=== PATIENT | female | born 1940 | race Caucasian/White ===

== ENCOUNTER → 2020-05-30 05:50 | Outpatient (CLI) | payer MEDICARE, SELFPAY ==
--- NOTE | 2020-05-31 11:38 | STRESSREP_ITS ---
Stress Test Report Date: 05/30/2020 Procedure: Pharmacologic stress nuclear imaging study Indications: Left bundle branch block Consent: Per the patient Procedure: The patient underwent pharmacologic (Regadenoson) evaluation with a peak heart rate of 96 beats per minute (67 %predicted maximal heart rate) and a peak blood pressure of 142/68 mmHg. The baseline ECG demonstrated sinus rhythm, nonspecific intraventricular conduction delay. EKG during lexiscan infusion revealed no significant ischemic changes. EKG post infusion revealed no significant ischemic changes [There were no cardiac dysrhythmias pretest, during pharmacologic infusion, or recovery]. [There was no complaint of chest discomfort during pharmacologic infusion or recovery]. The examination was discontinued secondary to completion of protocol. Impression: 1. Lexiscan stress test test is negative for Lexiscan infusion induced EKG changes of ischemia. 2. Lexiscan stress test test is negative for Lexiscan infusion induced chest pain. 3. Results of the nuclear portion of the test is as below Myocardial perfusion imaging study: Technique: The patient was injected with 10.9 millicuries of technetium 99m Cardiolite and subsequently rest SPECT Cardiolite nuclear imaging was obtained in the horizontal long, vertical long, and short axis views. The patient underwent pharmacologic (Regadenoson) evaluation. Please see above for details. The patient was injected with 33.5 millicuries of technetium 99m Cardiolite and subsequently stress SPECT Cardiolite nuclear imaging was obtained in the horizontal long, vertical long, and short axis views. A gated Cardiolite study at peak stress was obtained. Interpretation: Rest and stress SPECT Cardiolite nuclear imaging status post realignment, normalization, and attenuation correction demonstrate no significant fixed or reversible defect suggestive of significant ischemia or infarction. There is extracardiac uptake adjacent to the inferior wall in both the rest and stress images. Gated images reveal akinesis of the inferior wall which could be artifactual related to the extracardiac uptake. The reported LVEF is 49% which could be artificially low related to the extracardiac uptake adjacent to the inferior wall. Impression: 1. There is no evidence of significant ischemia or infarction. 2. Estimated ejection fraction is 49% which could be artifactually low. Consider 2D echo to evaluate LVEF and regional wall motion if clinically indicated. This note was generated with [employer] software. It may contain incorrect words, spelling, and punctuation that were not noted in checking the note before signing.
== END ==
PROVIDERS: PCP Internal Medicine; Referring Provider Internal Medicine; Visit Provider Internal Medicine
DX: I44.7 Left bundle-branch block, unspecified (principal)
CPT/HCPCS: 78452; 93017; A9500; A4216; J2785

== ENCOUNTER 2021-12-16 09:44 | Outpatient (CLI) | payer MEDICARE, SELFPAY ==
[2021-12-16 10:47] LABS: Erythrocyte Sedimentation Rate 7 mm/hr (0-30)
[2021-12-16 10:50] LABS: Absolute Lymphocyte Count 1.39 X10^3/uL (0.83-4.51); Absolute Neutrophil Count 4.4 X10^3/uL (2.0-7.7); Basophil# 0.11 X10^3/uL; Basophil% 1.6 % (0-1); Eosinophil# 0.25 X10^3/uL; Eosinophils% 3.7 % (0-5); Hematocrit 40.2 % (37-47); Hemoglobin 13.5 g/dL (12.0-15.0); Lymphocyte # 1.39 X10^3/ul (0.83-4.51); Lymphocyte % 20.8 % (19-41); Mean Corp Hgb Conc 33.6 g/dL (32-36); Mean Corpuscular Hgb 33.2 pg (27.0-32.0); Mean Corpuscular Volume 98.8 fL (81-99); Mean Platelet Vol. 9.5 fl (6.2-12.0); Monocyte# 0.54 X10^3/uL; Monocyte% 8.1 % (0-10); NRBC Flagged by Analyzer 0 % (0-5); Neutrophil # 4.36 X10^3/uL (2.7-7.7); Neutrophil % 65.2 % (47-70); Platelet Count 341 K/mm3 (150-450); RBC Distribution Width SD 47.4 fl (35.1-43.9); Red Blood Count 4.07 M/mm3 (4.2-5.4); White Blood Count 6.7 K/mm3 (4.4-11.0)
[2021-12-16 11:14] LABS: CRP < 2.90 mg/L (0.0-3.0)
== END 2021-12-16 23:59 | disposition home or self-care (01) ==
LOC: LAB 09:47
PROVIDERS: PCP Internal Medicine; Visit Provider Orthopaedic Surgery
DX: Z96.641 Presence of right artificial hip joint (principal)
CPT/HCPCS: 36415; 85025; 85652; 86140

== ENCOUNTER → 2023-03-26 | Outpatient (CLI) | payer MEDICARE, SELFPAY ==
--- NOTE | 2023-03-26 07:45 | BI_ITS ---
MAMMOGRAPHY - BILATERAL SCREENING REASON FOR EXAM: Female, 82 years old. Routine annual screening examination. PERTINENT HISTORY: Non-contributory. TECHNIQUE: Digital bilateral breast mignon (3D mammographic acquisition) in the CC and MLO projections. 2-D mediolateral oblique (MLO) and craniocaudad (CC) views of both breasts were obtained. CAD: Full Field Digital Mammography with Computer Added Detection was performed. COMPARISON: Comparison is made with prior study July 01, 2016 and May 29, 2015. FINDINGS: Breast Composition: The breasts are heterogeneously dense, which may obscure small masses. There are no dominant masses or suspicious calcifications. No other significant abnormalities are identified. There has been no significant change since the prior study. BI/SCRN MAMM (CAD)W/MIGNON BILAT IMPRESSION: Stable bilateral screening mammogram. Yearly follow-up mammogram recommended. (A) ASSESSMENT CATEGORY: BIRADS Category 1: Negative. A letter regarding these results will be sent to the patient by the facility within 30 days. Approximately 10% of breast cancers are not detected by mammography. A normal mammogram should not delay biopsy of a clinically suspicious abnormality. [id number] Electronically Signed: Luis Cleveland MD at 10:05 EDT ,
== END | disposition home or self-care (01) ==
LOC: OPBI 07:42
PROVIDERS: PCP Internal Medicine; Referring Provider Internal Medicine; Visit Provider Internal Medicine
DX: Z12.31 Encounter for screening mammogram for malignant neoplasm of breast (principal)
CPT/HCPCS: 77063; 77067

== ENCOUNTER 2023-06-21 10:00 | Outpatient (RCR) | payer MEDICARE, SELFPAY ==
--- NOTE | 2023-06-17 11:17 | HP.PTEVAL_ITS ---
Patient's Visit Information Visit Information Visit Information: NUVIA BAUMAN is a 82 year old F referred to Physical Therapy by Dr. Shira Hidalgo, DO with a diagnosis of LEFT SCIATICA ,LEFT LBP WITH RADICULOPATHY ,RIGHT HIP PAIN. Date of Evaluation: 06/17/23 Physical Therapist: Reed Cerda, PT, Cert MDT, OCS Visit Plan Frequency: 2x /Week Duration: 4 Weeks Plan: PT INBTERVETIONS LUMBAR ROM ,DLS ,POSTURAL EX'S AND HIP STRENGTHENING Subjective Subjective: This 82 y/o female presents to physical therapy with back and hip pain . Patient has left lumbar radicular symptoms many years for many years. Patient has h/o THR . Patient seen Dr Hidalgo annual physical then recommended PT and injection by DR Lara pain management. Patient plan to get injection before leaving to [place] next week. Patient location of pain right groin and left buttock pain. Aggravating factors sitting ,walking/standing ,elevation from chair. Alleviating factors rest ,sitting. Patient has difficulty lifting legs when getting in car. Patient denies paranesthesia/tingling. Bowel/bladder - . Pain affects sleeping. Patient - coughing/sneezing-.Patient goal ex's for HEP. Patient condition affects QOL and function. SOCIAL: VOCATION: retired Pain Left Buttocks: Pain Intensity (Out of 10): 5 Pain Intensity Range: 10 Objective Objective: POSTURE: mild forward posture GAIT: reciprocal pattern slow addison NEURO: denies paresthesia/tingling ,reflexes L3-4.L4-L5 ,L5-S1 1/3 SYMMTRIES: align PALPTION: tender SI/LS FLEXABILITY: hamstrings MIN LUMBAR ROM: flexion mod loss ,extension severe loss ,side glides mod loss MMT: ( [employer]) quads right 4-/5 ,hamstrings 4-/5 ,hip flexion 3+/5 pain in groin , Special Tests L/S Slump test left side: Negative L/S Slump test right side: Negative L/S Left Straight Leg Raise: Negative L/S Right Straight Leg Raise: Negative Lumbar Standing: Flexion - Mechanical Response: No effect Lumbar Standing: Flexion - Symptoms During Testing: No effect Lumbar Standing: Flexion - Symptoms After Testing: No effect Lumbar Standing: Extension - Mechanical Response: No effect Lumbar Standing: Extension - Symptoms During Testing: Increases Lumbar Standing: Extension - Symptoms After Testing: No worse Lumbar Standing: Right Side Glides - Mechanical Response: No effect Lumbar Standing: Right Side [place] - Symptoms During Testing: No effect Lumbar Standing: Right Side [place] - Symptoms After Testing: No effect Lumbar Standing: Left Side [place] - Mechanical Response: No effect Lumbar Standing: Left Side [place] - Symptoms During Testing: No effect Lumbar Standing: Left Side [place] - Symptoms After Testing: No effect Balance/Special Test Scores Oswestry Low Back Score: 24 Goals Goal 1:: Patient to be I with HEP Goal Time Frame: 4-6 Weeks Goal 2:: Patient to demonstrate 50% improvement with decrease pain and improve function Goal Time Frame: 4-6 Weeks Goal 3:: Patient to improve lumbar ROM for function of recovery with ADLS Goal Time Frame: 4-6 Weeks Goal 4:: Patient to improve back oswestry by 5 points to improve function Goal Time Frame: 4-6 Weeks Rehabilitation Potential Physical Therapy Diagnosis: This patient has h/o THR and has lumbar radiculopathy with pain with positioning and movement worse with walking /standi ng ,and weakness right affects ADLS and housework task's with physical therapy Rehabilitation Potential: Good Anticipated Interventions Patient/Client Instruction: Educate patient on: Condition and Plan of Care For the Purpose of:: To decrease pain, To increase ROM, To improve muscle performance and motor function, To improve ability to perform ADL's, To increase tolerance to activity/condition/position, To improve ability of physical actions for home/community/work/leisure, To improve health of tissue, To decrease soft tissue restriction and To increase flexibility/ROM Therapeutic Exercise to Include: Strength training, Endurance training, Balance training, Body mechanics, Postural training, Flexibilty training and Dynamic Lumbar Stabilization For the Purpose of:: To decrease pain, To increase ROM, To improve muscle performance and motor function, To increase tolerance to activity/condition/position, To improve ability of physical actions for home/community/work/leisure, To improve health of tissue, To decrease soft tissue restriction, To increase flexibility/ROM, To prevent re-injury and To improve tolerance to ADL's Text: Thank you for the opportunity to evaluate your patient. For Medicare and Medicare HMO plans, please review the plan of care and approve it. It will need to be FAXED BACK to us at [phone] for Medicare purposes. For Medicare only, by signing this I certify the plan of care. Please let me know if there are questions or concerns regarding this plan of care. Physician Signature: Date:
== END 2023-06-21 19:00 | disposition home or self-care (01) ==
LOC: PT 10:00
PROVIDERS: PCP Internal Medicine; Visit Provider Internal Medicine
DX: M54.50 Low back pain, unspecified (principal); M54.32 Sciatica, left side; M25.551 Pain in right hip
CPT/HCPCS: 97110; 97162

== ENCOUNTER → 2024-04-27 | Outpatient (CLI) | payer MEDICARE, SELFPAY ==
--- NOTE | 2024-04-27 08:45 | BI_ITS ---
MAMMOGRAPHY - BILATERAL SCREENING 3-D TOMOSYNTHESIS REASON FOR EXAM: Female, 83 years old. screening PERTINENT HISTORY: No significant family history. TECHNIQUE: 2-D mammograms and 3-D Tomosynthesis of the breast (s) were performed. CAD was performed. COMPARISON: 03/26/2023 FINDINGS: The breast composition is heterogeneously dense that can obscure small breast masses. Scattered benign calcifications are seen. No dense spiculated masses or suspicious microcalcifications are identified. No architectural distortion is identified. There is no skin thickening or retraction. There has been no significant change since the prior study. BI/SCRN MAMM (CAD)W/MIGNON BILAT IMPRESSION: No mammographic signs of malignancy. Routine yearly mammograms recommended. ASSESSMENT CATEGORY: BIRADS Category 1: Negative. A letter regarding these results will be sent to the patient by the facility within 30 days. FOLLOW UP RECOMMENDATION: Yearly follow up mammogram recommended. (A) Approximately 10% of breast cancers are not detected by mammography. A normal mammogram should not delay biopsy of a clinically suspicious abnormality. Electronically Signed: Duglas Ordonez MD at 13:24 EDT ,
--- NOTE | 2024-04-27 08:46 | BD_ITS ---
STUDY: DUAL ENERGY X-RAY ABSORPTIOMETRY / DXA REASON FOR EXAM: Female, 83 years old. [id number] TECHNIQUE: Bone Mineral Density (BMD) measurements of lumbar spine and right forearm were obtained. COMPARISON: Comparison is made with prior study dated July 01, 2016. FINDINGS: Lumbar Spine (L1-L4): g/cm2 (1.276) / T-score (1.8) / Z-score (4.7) Findings are suggestive of normal bone density with a low fracture risk. Right Forearm: g/cm2 (0.341) / T-score (-4.4) / Z-score (-1.1) The T-Scores on the most recent prior examination were: Lumbar Spine (L1-L4): There has been improvement of bone density since the previous examination. BD/Dexa Bone Density Study IMPRESSION: The patient is considered osteoporotic as outlined below according to World Daniel Organization (WHO) criteria with a high fracture risk. There has been improvement of bone density since the previous examination. Reference Information: The T-score is the number of standard deviations above or below the standard which is normal for young adults at their peak bone mineral density. The World Health Organization (WHO) interprets the T-scores as follows: Above -1 Normal bone density Between -1 and -2.5 Osteopenia Equal to / or below -2.5 Osteoporosis As a practical clinical guideline, osteopenia may be graded as follows: Mild -1 through -1.5 Moderate -1.6 through -2.0 Severe -2.1 through -2.4 The Z-score is the number of standard deviations above or below age-matched controls. A Z-score of less than -1.5 would be considered abnormal. References: 1. NIH Osteoporosis and Related Bone Diseases www osteo.org 2. International Society for Clinical Densitometry www iscd.org 3. National Osteoporosis Foundation www nof.org Electronically Signed: Luis Cleveland MD at 15:42 EDT ,
== END | disposition home or self-care (01) ==
LOC: OPBD 08:45
PROVIDERS: PCP Internal Medicine; Referring Provider Internal Medicine; Visit Provider Internal Medicine
DX: Z12.31 Encounter for screening mammogram for malignant neoplasm of breast (principal); Z78.0 Asymptomatic menopausal state
CPT/HCPCS: 77063; 77067; 77080

== ENCOUNTER → 2024-06-06 | Outpatient (CLI) | payer MEDICARE, SELFPAY ==
--- NOTE | 2024-06-06 16:16 | US_ITS ---
STUDY: Focused cervical exam on the left/ULTRASOUND REASON FOR EXAM: Female, 83 years old. neck mass TECHNIQUE: Ultrasound evaluation of the thyroid was performed with real-time and static wynn-scale imaging. COMPARISON: None. FINDINGS: Normal-appearing lymph node measures 1.7 x 1.1 x 0.5 cm. US/Head/Neck Soft Tissue IMPRESSION: Isolated normal-appearing lymph node on the left as above near the area of concern. Electronically Signed: Ken Cooney MD at 17:32 EDT ,
== END | disposition home or self-care (01) ==
LOC: US 16:15
PROVIDERS: PCP Internal Medicine; Referring Provider Internal Medicine; Visit Provider Internal Medicine
DX: R22.1 Localized swelling, mass and lump, neck (principal)
CPT/HCPCS: 76536

== ENCOUNTER → 2024-08-02 | Outpatient (CLI) | payer MEDICARE, SELFPAY ==
--- NOTE | 2024-08-02 12:44 | ECHOD_ITS ---
Reason For Study: LBBB Procedure This was a 2D Doppler, Color Flow transthoracic echocardiogram. Exam performed in department. Left Ventricle Normal LV size. Left ventricular systolic function is normal. The left ventricular ejection fraction is 60 %. No regional wall motion abnormalities noted. Right Ventricle Normal RV size. Normal systolic function. Atria Normal left atrium. Normal right atrium. Mitral Valve Normal mitral valve. Trivial eccentric mitral valve insufficiency. Tricuspid Valve Normal tricuspid valve. Mild tricuspid valve insufficiency. Right ventricular systolic pressure estimated to be 30 mmHg. Aortic Valve Trisinus/trileaflet aortic valve. Pulmonic Valve Normal pulmonic valve. Great Vessels Normal aortic root. Pericardium/Pleural No pericardial effusion. MMode/2D Measurements & Calculations LVIDd: 4.8 cm IVSd: 0.98 cm Ao root diam: 3.4 cm LVIDs: 3.6 cm LVPWd: 0.98 cm RVDd: 2.9 cm FS: 23.9 % LAV(MOD-bp): 56.5 ml LVAd ap4: 27.9 cm2 LVAd ap2: 24.0 cm2 LAV(MOD-bp) Indexed: 30.6 ml/m2 LVLd ap4: 6.9 cm LVLd ap2: 7.4 cm LAV(MOD-sp2): 57.8 ml EDV(MOD-sp4): 91.2 ml EDV(MOD-sp2): 68.1 ml LAV(MOD-sp4): 54.1 ml EDV(sp4-el): 96.1 ml EDV(sp2-el): 66.1 ml LVAs ap4: 15.5 cm2 LVAs ap2: 12.9 cm2 LVLs ap4: 5.4 cm LVLs ap2: 5.6 cm ESV(MOD-sp4): 37.6 ml ESV(MOD-sp2): 25.8 ml ESV(sp4-el): 37.8 ml ESV(sp2-el): 25.0 ml EF(MOD-sp4): 58.8 % EF(MOD-sp2): 62.1 % EF(sp4-el): 60.7 % SV(MOD-sp4): 53.7 ml SV(MOD-sp2): 42.3 ml SV(sp4-el): 58.3 ml SI(MOD-sp4): 29.1 ml/m2 SI(MOD-sp2): 22.9 ml/m2 LA A4 area: 18.0 cm2 LA dimension(2D): 3.5 cm RA A4 area: 12.1 cm2 TAPSE: 2.0 cm Time Measurements MV dec time: 0.23 sec Doppler Measurements & Calculations MV E max joo: 65.6 cm/sec Lat Peak E' Joo: 4.7 cm/sec Med Peak E' Joo: 4.5 cm/sec MV A max joo: 108.9 cm/sec E/E' lat: 14.1 E/E' med: 14.6 MV E/A: 0.60 MV V2 max: 135.2 cm/sec MV P1/2t max joo: 73.3 cm/sec Ao V2 max: 122.5 cm/sec MV max P.3 mmHg MV P1/2t: 83.7 msec Ao max P.0 mmHg MV V2 mean: 58.3 cm/sec Ao V2 mean: 73.4 cm/sec MV mean P.7 mmHg MV dec slope: 256.5 cm/sec2 Ao mean P.6 mmHg MV V2 VTI: 31.1 cm MVA(P1/2t): 2.6 cm2 Ao V2 VTI: 23.2 cm AV (velocity ratio): 0.71 LV V1 max: 82.5 cm/sec PA V2 max: 79.8 cm/sec TR max joo: 256.8 cm/sec LV V1 max P.7 mmHg PA V2 mean: 55.1 cm/sec TR max P.4 mmHg LV V1 mean P.3 mmHg LV V1 mean: 54.0 cm/sec LV V1 VTI: 16.4 cm ECHO/Echo Complete Interpretation Summary Normal LV size. Left ventricular systolic function is normal. The left ventricular ejection fraction is 60 %. Right ventricular systolic pressure estimated to be 30 mmHg. Ordering Physician: Shira Hidalgo Referring Physician: Shira Hidalgo Performed By: Porsche Zaidi, RDCS, RVT
== END | disposition home or self-care (01) ==
LOC: CVS 12:42
PROVIDERS: PCP Internal Medicine; Referring Provider Internal Medicine; Visit Provider Internal Medicine
DX: I44.7 Left bundle-branch block, unspecified (principal)
CPT/HCPCS: 93306

== ENCOUNTER → 2024-08-18 | Outpatient (CLI) | payer MEDICARE, SELFPAY | END | disposition home or self-care (01) | LOC: PSN 07:52 | PROVIDERS: PCP Internal Medicine; Referring Provider Internal Medicine; Visit Provider Internal Medicine | DX: R00.1 Bradycardia, unspecified (principal); I44.7 Left bundle-branch block, unspecified | CPT/HCPCS: 93225; 93226 ==

== ENCOUNTER → 2024-09-07 | Outpatient (CLI) | payer MEDICARE, SELFPAY ==
--- NOTE | 2024-09-07 07:54 | CT_ITS ---
STUDY: CT LEFT SHOULDER REASON FOR EXAM: Female, 83 years old. OSTEOARTHRITIS LEFT SHOULDER RADIATION DOSAGE (If Supplied By Facility): CTDIvol = ( 24.27 ) mGy, DLP = ( 591.30 ) mGycm TECHNIQUE: The patient was scanned in a multi detector CT scanner. High resolution transaxial imaging was performed without the administration of intravenous contrast material. Sagittal and coronal images were reconstructed. Individualized dose optimization techniques were used for this CT. COMPARISON: None. FINDINGS: There is severe glenohumeral arthrosis with [id number], marginal osteophyte formation, and subchondral sclerosis/cyst formation. There is a cluster of calcified loose bodies in the axillary recess measuring up to 2.7 cm in diameter. Intact glenoid neck and visualized scapula. Intact humeral head, neck and tuberosities. Normal coracoid process. Normal visualized lateral clavicle. There is mild hypertrophic acromioclavicular arthrosis. There is a Type II morphology (curved), with a neutral orientation. Normal visualized muscles and soft tissue structures. CT/Extremity Upper without Contra IMPRESSION: Severe glenohumeral arthrosis. Cluster of calcified loose bodies in the axillary recess measuring up to 2.7 cm in diameter. Mild hypertrophic acromioclavicular arthrosis. Electronically Signed: Obinna Sr MD at 15:08 EST ,
== END | disposition home or self-care (01) ==
LOC: CT 07:51
PROVIDERS: PCP Internal Medicine; Referring Provider Student in an Organized Health Care Education/Training Program; Visit Provider Student in an Organized Health Care Education/Training Program
DX: M19.012 Primary osteoarthritis, left shoulder (principal)
CPT/HCPCS: 73200

== ENCOUNTER 2024-10-02 13:22 | Observation (INO) | payer MEDICARE, SELFPAY ==
--- NOTE | 2024-09-07 07:53 | EKG12_ITS ---
Test Reason : PRE OP Blood Pressure : */* mmHG Vent. Rate : 63 BPM Atrial Rate : 63 BPM P-R Int : 178 ms QRS Dur : 122 ms QT Int : 456 ms P-R-T Axes : 49 -46 90 degrees QTcB Int : 466 ms Normal sinus rhythm Left axis deviation Left bundle branch block Abnormal ECG Confirmed by WOLFGANG GOODWIN, ARON ([id number]), image editor ZANDRA DORSEY ([id number]) on 09/07/2024 12:47:03 PM Referred By: Jimy Nazario Confirmed By: ARON GOSS MD
[2024-09-07 09:17] LABS: Absolute Lymphocyte Count 1.08 X10^3/uL (0.83-4.51); Absolute Neutrophil Count 3.3 X10^3/uL (2.0-7.7); Basophil# 0.06 X10^3/uL; Basophil% 1.2 % (0-1); Eosinophil# 0.31 X10^3/uL; Hematocrit 38.5 % (37-47); Hemoglobin 13.2 g/dL (12.0-15.0); Lymphocyte # 1.08 X10^3/ul (0.83-4.51); Lymphocyte % 20.7 % (19-41); Mean Corp Hgb Conc 34.3 g/dL (32-36); Mean Corpuscular Hgb 33.2 pg (27.0-32.0); Mean Corpuscular Volume 96.7 fL (81-99); Mean Platelet Vol. 9.2 fl (6.2-12.0); Monocyte# 0.44 X10^3/uL; Monocyte% 8.4 % (0-10); NRBC Flagged by Analyzer 0 % (0-5); Neutrophil # 3.29 X10^3/uL (2.7-7.7); Neutrophil % 63.1 % (47-70); Platelet Count 271 K/mm3 (150-450); RBC Distribution Width CV 12.4 % (11.6-14.6); RBC Distribution Width SD 44.4 fl (35.1-43.9); Red Blood Count 3.98 M/mm3 (4.2-5.4); White Blood Count 5.2 K/mm3 (4.4-11.0)
[2024-09-07 09:47] LABS: Anion Gap 2 (5-15); BUN 15 mg/dL (7-18); BUN/Creat Ratio 24.9 RATIO (10-20); Calcium,Total 9.4 mg/dL (8.5-10.1); Chloride 108 mmol/L (98-107); EST Glomerular Filtration Rate 101 mL/min (>60); Est Glom Filt Rate - Afr Amer 122 mL/min (>60); Glucose 94 mg/dL (74-106); Potassium 4.1 mmol/L (3.5-5.1); Sodium Level 139 mmol/L (136-145)
[2024-09-07 10:08] LABS: Magnesium 2.3 mg/dL (1.6-2.6)
--- NOTE | 2024-09-08 08:08 | PAT.ANESEVAL ---
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 When Was Last Pacemaker Check QUESTION #4 FULL TEXT: You/Your Family Experience fever (hyperthermia) with Anesthesia Last Oral Intake Last Oral intake: Last Oral Intake NPO since Meds taken in AM with sips of water? Meds patient instructed to take am of surgery PONV PONV - productivity engineer: PONV - productivity engineer Female Yes 09/04/24 13:20 HX of Motion Sickness Yes 09/04/24 13:20 HX of N/V After Surgery No 09/04/24 13:20 Non-Smoker Yes 09/04/24 13:20 Duration of Surgery greater Yes 09/04/24 13:20 than 60 minutes Number of Risk Factors 4 09/04/24 13:20 PONV Score Severe Risk 09/04/24 13:20 Respiratory Assessment Respiratory Assessment - productivity engineer: Respiratory Tract Infection Hx - productivity engineer Hx Respiratory Tract Infection No 09/04/24 13:20 STOP Sleep Apnea STOP Sleep Apnea - productivity engineer: STOP Sleep Apnea - productivity engineer Hx Hypertension No 09/04/24 13:20 Hx Sleep Apnea No 09/04/24 13:20 CPAP No 02/07/24 09:47 BIPAP No 02/07/24 09:47 Do you snore loudly (louder No 09/04/24 13:20 than talking or can be heard Do you often feel tired/ Yes 09/04/24 13:20 fatigued/ sleepy during daytime? Has anyone observed you stop No 09/04/24 13:20 breathing during sleep? STOP Results Negative 09/04/24 13:20 QUESTION #5 FULL TEXT : Do you snore loudly (louder than talking or can be heard through closed doors)? Tobacco Use History Tobacco Use History - productivity engineer: Tobacco Use History - productivity engineer Tobacco Use Smoking Status Never smoker 09/04/24 13:20 Hx Tobacco Use No 09/04/24 13:20 Years Smoking Packs Smoked per Day Smoking Cessation Date was within the last 15 years Hx Smoking Cessation Date Hx Smoking Cessation Counseling Hematologic Medial History Hematologic Hx - productivity engineer: Hematologic Medical Hx - ct scan technician Hx of Blood Transfusion Yes 09/04/24 13:20 Hx of Transfusion in last 3 No 09/04/24 13:20 Months Date of Last Transfusion (if within last 3 months) Ever experience any problems No 09/04/24 13:20 with transfusion(s)? Specify any problems Hx of Preganancy in last 3 No 09/04/24 13:20 Months Nurse Filling Out Transfusion DSCHRIBER 09/04/24 13:20 & Questions: Date: 09/04/24 09/04/24 13:20 Time: 13:22 09/04/24 13:20 Patient unable to answer at this time (ie. confused, unrespo /Reproduction History /Reproductive History - productivity engineer: /Reproductive Hx- productivity engineer Hx Now No 09/04/24 13:20 Gestational Age (in weeks): EDC: Hx Hx Para Hx Section SAB No 09/04/24 13:20 PFSH Medical History (Updated 09/04/24 @ 13:37 by Brenda Oreilly) Loss of hearing Wears glasses Wears dentures Post-menopausal Anxiety Thyroid disease Ambulates with cane Arthritis Restless legs Back pain Gastric reflux Asthma Shortness of breath on exertion Non-smoker Leg cramps History of pain when walking History of stress test History of echocardiogram History of Holter monitoring Angina pectoris Pain Home Medications ?Medication ?Instructions ?Recorded ?Last Taken ?Type albuterol sulfate 90 mcg/actuation 2 puff inhalation Q6H PRN PRN 06/19/13 Unknown History aerosol inhaler (Ventolin HFA) Dyspnea/Wheezing/Sob acetaminophen 500 mg tablet 500 mg PO Q6H PRN pain 09/04/24 Unknown History (Acetaminophen Extra Strength) aspirin 81 mg tablet,delayed 81 mg PO DAILY 09/04/24 Unknown History release (Adult Aspirin Regimen) celecoxib 200 mg capsule 200 mg PO DAILY 09/04/24 Unknown History cholecalciferol (vitamin D3) 125 125 mcg PO DAILY 09/04/24 Unknown History mcg (5,000 unit) tablet (Vitamin D3) fluticasone 100 mcg-salmeterol 50 1 inh inhalation DAILY PRN PRN 09/04/24 Unknown History mcg/dose blistr powdr for shortness of breath inhalation (Advair Diskus) gabapentin 300 mg capsule 300 mg PO QHS 09/04/24 Unknown History levothyroxine 112 mcg tablet 112 mcg PO DAILY 09/04/24 Unknown History mecobalamin (vitamin B12) 1,000 1,000 mcg PO DAILY 09/04/24 Unknown History mcg chewable tablet omeprazole 40 mg capsule,delayed 40 mg PO DAILY PRN PRN GERD 09/04/24 Unknown History release pramipexole 0.75 mg tablet 0.75 mg PO QHS RLS 09/04/24 Unknown History sennosides 8.6 mg-docusate sodium 1 tab-cap PO DAILY 09/04/24 Unknown History 50 mg tablet (Stool Softener-Stimulant Laxative) tramadol 50 mg tablet 25 - 50 mg PO BID PRN PRN pain 09/04/24 Unknown History Allergy/AdvReac Type Severity Reaction Status Date / Time fexofenadine AdvReac Mild Nausea Verified 09/04/24 13:05 Sulfa (Sulfonamide AdvReac Mild Nausea Verified 09/04/24 13:05 Antibiotics) terfenadine AdvReac Mild Nausea Verified 09/04/24 13:05 Surgical History (Updated 09/04/24 @ 13:37 by Brenda Oreilly) Hx of colonoscopy Hx of eye surgery Hx of total shoulder replacement Hx of appendectomy History of revision of total hip arthroplasty Hx of total hip arthroplasty Hx of tubal ligation Hx of laparoscopy Hx of total hip arthroplasty Social History Smoking Status: Never smoker Audit: Pertinent Findings Pertinent Findings EKG Perinent findings: 09/07/2024 normal sinus rhythm left axis deviation left bundle branch block ventricular rate 63 Echo (EF%) pertinent findings: Echo for left bundle branch block normal LV size normal function EF [id number] Recommendation Anesthesia Recommendation Anesthesia recommendation: OPTIMIZED for anesthesia
[2024-10-02] VITALS (15 sets, daily range): BP systolic 132–190; BP diastolic 62–130; PULSE 62–95; RESP 14–18; TEMP 36.1–36.7; O2SAT 91–100; BMI 30.8
--- NOTE | 2024-10-02 | SHO_PTH ---
PATIENT: NUVIA BAUMAN LOC: [facility] U#:[id number] AGE/SX: 83/F ROOM: [facility] RE10/02/[address]: Dr. Jimy Nazario DO : 1940 BED: 1 DIS: 10/03/2024 SPEC #: [id number] RECD: 10/02/24 14:57 STATUS: NATA RAY #: [id number] HARSHAL: 10/02/24 00:[address]: Jimy Nazario DEPT: SURGICAL PATHOLOGY RECD BY: Mohinder Stanton ENTERED: 10/03/24 07:53 SP TYPE: HUMERUS OTHR DR: MD Dr. Shira Osei DO Tissues: Humerus, NOS Procedures: Decalcification bone/plaque Surgery Specimen Level IV HEADER OPERATION: Left reverse total shoulder arthroplasty PRE-OP DIAGNOSIS: Severe ghenoidhumeral joint, osteoarthritis, left TISSUE SUBMITTED: Left humeral head MICROSCOPIC DIAGNOSIS Bone and tissue left shoulder, total shoulder replacement/resection: Humeral head with degenerative osteoarthritic changes. Fragments of fibroadipose tissue, fibroconnective tissue and reactive synovial tissue. SJ. 10/06/2024 MICROSCOPIC DESCRIPTION Slides are reviewed. GROSS DESCRIPTION Received is one container labeled with the patient's name and designated bone and soft tissue. The specimen consists of a humeral head measuring 5.0 x 5.0 x 1.7 cm. The articular surface shows areas of erosion, eburnation and osteophyte formation. Also present in the container are two detached pieces of bone consistent with loose body measuring 1.2 and 3.0cm in greatest dimension. Also attached to the humeral head is a piece of soft tissue measuring 2.5 x 1.5 x 0.3cm. Manager Configuration sections are submitted in two cassettes as follows: 1 - entire soft tissue, 2 - humeral head after decalcification. / SJ:mr 10/03/2024 TC:5 CPT: 69945, 79667
[2024-10-02] MEDS: Magnesium 1 GM over 15 mins IV (10:25)
[2024-10-02] MEDS: Gabapentin 600 MG Tablet PO (10:31)
[2024-10-02] MEDS: Lactated Ringers 1,000 ML 999 ML IV ×2 (10:31→14:27)
[2024-10-02] MEDS: Acetaminophen 500 MG Tablet 1000 MG PO ×2 (10:31→20:25)
--- NOTE | 2024-10-02 10:50 | PRE.ANES_ITS ---
ASA Classification* ASA Classification ASA Classification: 2 Assessment & Plan Anesthesia* Anesthesia Assessment Anesthesia Assessment: Discussed sedation and/or anesthesia options, risks, benefits, and alternatives with patient/parents/legal guardian/POA. Questions invited. The patient/parents/legal guardian/POA seems to understand and agrees to proceed with anesthesia plan. Reviewed the physical assessment, medical history, allergy history and patient home medications list prior to surgery/procedure/anesthetic and documented any changes. Performed airway and anesthesia risk assessments. Anesthesia Type Anesthesia Type: General and Block Anesthesia Focused Assessment* Temperature: 98.0 F Pulse Rate: 62 Blood Pressure: 155/62 Respiratory Rate: 18 Pulse Ox: 98 Airway Assessment Mouth opens: >3 cm Mallampati Score: II Focused Labs Anesthesia Preop lab: CBC WBC 5.2 K/mm3 (4.4-11.0) 09/07/24 08:46 RBC 3.98 M/mm3 (4.2-5.4) L 09/07/24 08:46 Hgb 13.2 g/dL (12.0-15.0) 09/07/24 08:46 Hct 38.5 % (37-47) 09/07/24 08:46 Plt Count 271 K/mm3 (150-450) 09/07/24 08:46 CHEMISTRY Potassium 4.1 mmol/L (3.5-5.1) 09/07/24 08:46 Sodium 139 mmol/L (136-145) 09/07/24 08:46 Magnesium 2.3 mg/dL (1.6-2.6) 09/07/24 08:46 BUN 15 mg/dL (7-18) 09/07/24 08:46 Creatinine 0.60 mg/dL (0.55-1.02) 09/07/24 08:46 Glucose 94 mg/dL (74-106) 09/07/24 08:46 TSH 2.270 uIU/mL (0.358-3.740) 09/07/24 08:46 COAG PT 13.1 SECONDS (11.9-14.4) 06/18/13 18:32 Pre-Assessment Diagnosis/Proposed Procedure Planned Operative Procedure(s): LEFT REVERSE TOTAL SHOULDER ARTHROPLASTY Anesthesia History Anesthesia History - executive assistant to general counsel: Anesthesia History - executive assistant to general counsel Hx Hospitalization No 09/04/24 13:20 Any Problems With Anesthesia Yes: SLOW TO AWAKEN 09/04/24 13:20 Cholinesterase deficiency No 09/04/24 13:20 You/Your Family Experience No 09/04/24 13:20 fever (hyperthermia) with Relationship Recent Exposure to Contagious No 10/02/24 10:25 Disease Does patient have nerve No 09/04/24 13:20 stimulator Patient instructed to have device shut off --Does patient have Pacemaker No 10/02/24 10:25 or ICD? When Was Last Pacemaker Check QUESTION #4 FULL TEXT: You/Your Family Experience fever (hyperthermia) with Anesthesia Last Oral Intake Last Oral intake: Last Oral Intake NPO since 09:00 10/02/24 10:25 Meds taken in AM with sips of Yes 10/02/24 10:25 water? Meds patient instructed to see medlist 10/02/24 10:25 take am of surgery PONV PONV - executive assistant to general counsel: PONV - executive assistant to general counsel Female Yes 09/04/24 13:20 HX of Motion Sickness Yes 09/04/24 13:20 HX of N/V After Surgery No 09/04/24 13:20 Non-Smoker Yes 09/04/24 13:20 Duration of Surgery greater Yes 09/04/24 13:20 than 60 minutes Number of Risk Factors 4 09/04/24 13:20 PONV Score Severe Risk 09/04/24 13:20 Height & Weight Height & Weight: Anesthesia: Height & Weight Height 5 ft 3 in 10/02/24 10:25 Weight: 79 kg 10/02/24 10:25 Body Mass Index (BMI) 30.8 10/02/24 10:25 Respiratory Assessment Respiratory Assessment - executive assistant to general counsel: Respiratory Tract Infection Hx - executive assistant to general counsel Hx Respiratory Tract Infection No 09/04/24 13:20 STOP Sleep Apnea STOP Sleep Apnea - executive assistant to general counsel: STOP Sleep Apnea - executive assistant to general counsel Hx Hypertension No 09/04/24 13:20 Hx Sleep Apnea No 09/04/24 13:20 CPAP No 02/07/24 09:47 BIPAP No 02/07/24 09:47 Do you snore loudly (louder No 09/04/24 13:20 than talking or can be heard Do you often feel tired/ Yes 09/04/24 13:20 fatigued/ sleepy during daytime? Has anyone observed you stop No 09/04/24 13:20 breathing during sleep? STOP Results Negative 09/04/24 13:20 QUESTION #5 FULL TEXT : Do you snore loudly (louder than talking or can be heard through closed doors)? 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 Specify any problems Hx of Preganancy in last 3 No 09/04/24 13:20 Months Nurse Filling Out Transfusion DSCHRIBER 09/04/24 13:20 & Questions: Date: 09/04/24 09/04/24 13:20 Time: 13:22 09/04/24 13:20 Patient unable to answer at this time (ie. confused, unrespo /Reproduction History /Reproductive History - executive assistant to general counsel: /Reproductive Hx- executive assistant to general counsel Hx Now No 09/04/24 13:20 Gestational Age (in weeks): EDC: Hx Hx Para Hx Section SAB No 09/04/24 13:20 Active Medications Active Medications: Current Medications Generic Name Dose Route Start Last Admin Trade Name Freq PRN Reason Stop Dose Admin Acetaminophen 1,000 mg 10/02/24 13:50 10/02/24 10:31 Acetaminophen 500 Mg Tablet PO 10/02/24 13:51 1,000 mg X1 ONE Administration Sodium Chloride 77.4 ml/ 0 ml 10/02/24 13:50 Ropivacaine 200 mg/ OPERA.SITE 10/02/24 13:51 Epinephrine HCl 0.6 mg/ X1 ONE Ketorolac Tromethamine 30 mg/ Morphine Sulfate 5 mg Dexamethasone Sodium Phosphate 10 mg 10/02/24 13:50 Dexamethasone 10 Mg/Ml Vial IV 10/02/24 13:51 X1 ONE Gabapentin 600 mg 10/02/24 13:50 10/02/24 10:31 Gabapentin 600 Mg Tablet PO 10/02/24 13:51 600 mg X1 ONE Administration Lactated Ringer's 1,000 mls @ 999 mls/hr 10/02/24 13:50 10/02/24 10:31 IV 10/02/24 14:50 999 mls/hr .Q1H1M THOM Administration Cefazolin Sodium 2 gm/ N/A 20 mls @ 400 mls/hr 10/02/24 13:50 IV 10/02/24 13:52 PREOP ONE Tranexamic Acid 1,000 mg/ 110 mls @ 660 mls/hr 10/02/24 13:50 Sodium Chloride IV 10/02/24 13:59 X1 ONE Tranexamic Acid 1,000 mg/ 110 mls @ 660 mls/hr 10/02/24 13:50 Sodium Chloride IV 10/02/24 13:59 X1 ONE Lactated Ringer's 1,000 mls @ 999 mls/hr 10/02/24 13:50 IV 10/02/24 14:50 .Q1H1M THOM Lactated Ringer's 1,000 mls @ 125 mls/hr 10/02/24 13:50 IV 10/02/24 21:49 .Q8H THOM Magnesium Sulfate 1 gm/ 102 mls @ 408 mls/hr 10/02/24 13:50 10/02/24 10:25 Dextrose IV 10/02/24 14:04 408 mls/hr X1 ONE Administration Insulin Human Lispro 1 - 6 unit 10/02/24 13:50 Insulin Lispro 100 Unit/Ml Insuln.Pen SC Q4H PRN PRN BG>/= 180, SEE PROTOCOL Protocol PFSH Medical History Loss of hearing Wears glasses Wears dentures Post-menopausal Anxiety Thyroid disease Ambulates with cane Arthritis Restless legs Back pain Gastric reflux Asthma Shortness of breath on exertion Non-smoker Leg cramps History of pain when walking History of stress test History of echocardiogram History of Holter monitoring Angina pectoris Pain Home Medications ?Medication ?Instructions ?Recorded ?Last Taken ?Type albuterol sulfate 90 mcg/actuation 2 puff inhalation Q6H PRN PRN 06/19/13 Unknown History aerosol inhaler (Ventolin HFA) Dyspnea/Wheezing/Sob acetaminophen 500 mg tablet 500 mg PO Q6H PRN pain 09/04/24 Unknown History (Acetaminophen Extra Strength) aspirin 81 mg tablet,delayed 81 mg PO DAILY 09/04/24 09/21/24 History release (Adult Aspirin Regimen) celecoxib 200 mg capsule 200 mg PO DAILY 09/04/24 Unknown History cholecalciferol (vitamin D3) 125 125 mcg PO DAILY 09/04/24 Unknown History mcg (5,000 unit) tablet (Vitamin D3) fluticasone 100 mcg-salmeterol 50 1 inh inhalation DAILY PRN PRN 09/04/24 Unknown History mcg/dose blistr powdr for shortness of breath inhalation (Advair Diskus) gabapentin 300 mg capsule 300 mg PO QHS 09/04/24 Unknown History levothyroxine 112 mcg tablet 112 mcg PO DAILY 09/04/24 10/02/24 History mecobalamin (vitamin B12) 1,000 1,000 mcg PO DAILY 09/04/24 Unknown History mcg chewable tablet omeprazole 40 mg capsule,delayed 40 mg PO DAILY PRN PRN GERD 09/04/24 10/02/24 History release pramipexole 0.75 mg tablet 0.75 mg PO QHS RLS 09/04/24 Unknown History sennosides 8.6 mg-docusate sodium 1 tab-cap PO DAILY 09/04/24 Unknown History 50 mg tablet (Stool Softener-Stimulant Laxative) tramadol 50 mg tablet 25 - 50 mg PO BID PRN PRN pain 09/04/24 Unknown History Allergy/AdvReac Type Severity Reaction Status Date / Time fexofenadine AdvReac Mild Nausea Verified 09/04/24 13:05 Sulfa (Sulfonamide AdvReac Mild Nausea Verified 09/04/24 13:05 Antibiotics) terfenadine AdvReac Mild Nausea Verified 09/04/24 13:05 Surgical History Hx of colonoscopy Hx of eye surgery Hx of total shoulder replacement Hx of appendectomy History of revision of total hip arthroplasty Hx of total hip arthroplasty Hx of tubal ligation Hx of laparoscopy Hx of total hip arthroplasty Social History Smoking Status: Never smoker Review of Systems (Anesthesia) ROS Narrative System reviewed and no additional complaints, except as documented.
[2024-10-02] MEDS: Cefazolin 2 GM in Syringe 10 ML IV (12:12)
[2024-10-02] MEDS: TXA 1000mg in NS100 100ml (IVPB at Incision) 660 MG IV (12:13)
[2024-10-02] MEDS: dexAMETHasone 10 MG/ML Vial IV (12:24)
[2024-10-02 12:51] LABS: Bedside Glucose 119 mg/dL (74-106)
[2024-10-02] MEDS: TXA 1000mg in NS100 100ml (IVPB at Closure) 660 MG IV (13:05)
--- NOTE | 2024-10-02 13:14 | RAD_ITS ---
STUDY: X-RAY - LEFT SHOULDER REASON FOR EXAM: Female, 83 years old. Post op -- AP and Lateral X-Ray of operative shoulder in PACU TECHNIQUE: 2 view(s) of the shoulder. COMPARISON: None. FINDINGS: The patient is status post left reverse shoulder replacement. There is good alignment. Vascular congestion. RAD/Shoulder min 2 Views IMPRESSION: Status post left reverse shoulder replacement. Vascular congestion. Electronically Signed: Luis Cleveland MD at 14:19 EST ,
--- NOTE | 2024-10-02 13:40 | OP.PCM_ITS ---
Operative Report (Standard) Operative Information Date of Procedure: 10/02/24 Pre-Operative Diagnosis: Left glenohumeral osteoarthritis Post-Operative Diagnosis: Left glenohumeral osteoarthritis Surgery/Procedure Performed: Left reverse total shoulder arthroplasty tongue stitcher: Yes Correction Officer Head: Carlene Howe Tasks completed by medical assistant: Opening & closing, Dissecting tissue, Implanting device, Hemostasis: Electrocautery and Retracting Additional bankruptcy assistant?: No Type of Anesthesia: General/Regional RN Documented Start/Stop Times: Operation Date: 10/02/24 11:50 Case Time Into Pre-Op 10/02/24 09:40 Anesthesia Start 10/02/24 11:43 Into Room 10/02/24 11:43 Procedure Start 10/02/24 12:14 Procedure End 10/02/24 13:28 Anesthesia End 10/02/24 13:31 Out of Room 10/02/24 13:31 Procedure Start Time: 12:14 Procedure Stop Time: 13:28 Select all DRAINS/GRAFTS/IMPLANTS that apply: Implanted device Implanted device details: Tornier Aequalis PerFORM+ reversed baseplate 25 mm diameter full wedge, standard glenosphere cobalt chrome 36 mm diameter, Tornier perform inlay stem size #3+, + 0 mm retentive size number 3 36 mm diameter polyethylene insert, short central post and peripheral screws x4. Estimated Blood Loss: 50 cc Specimen collected: Yes Description of specimen(s) removed: Left humeral head Description of surgery: Patient arrived to [facility] morning of the procedure and was greeted by the same day surgery staff. Prior to her procedure, I greeted the patient in the preoperative holding area I identified the patient by name, record number, and date of . Informed consent was confirmed. The operative extremity was marked. All questions were answered to patient satisfaction. An interscalene block was administered prior to procedure by anesthesia staff for postoperative and intraoperative analgesia. At time of her procedure, patient was brought to the operative suite and positi oned supine on a standard table with a beachchair attachment. General anesthesia was induced after all bony prominences were well-padded. Endotracheal tube was placed. After adequate anesthesia and securing the tube, we prepared the patient to be positioned in the beachchair position. A well- padded automatic head sawyer was applied. The nonoperative extremity was placed in a well arm omer. She was then brought into the beachchair position after we confirmed an appropriate blood pressure. We then spun the bed 45 degrees. The operative extremity was then prepared. In the butterfly wing of the bed was removed and a well-padded torso strap was applied to secure the patient to the bed. The operative extremity was now free. We then prepped and draped the left upper extremity in normal, sterile orthopedic fashion. We then performed a timeout with all parties in attendance in agreement with the side, site, and operation be performed. 2 g Ancef was administered prior to incision by anesthesia staff, as well as 1 g TXA IV. No concerns were voiced and we elected to proceed. I first marked a standard deltopectoral incision just lateral to the coracoid process in line with the long axis of the humerus. Skin was sharply incised with 10 blade scalpel. I then dissected bluntly through the subcutaneous layers and found the fat stripe between the deltoid and pectoralis major. The cephalic vein was then identified and protected. It was retracted laterally with the deltoid. I then bluntly dissected underneath the deltoid with a Perez elevator. Gabe retractor was placed. The upper 1 cm of the pectoralis major was released. I then identified the long head of the biceps tendon in the intertubercular groove. This was tenodesed in situ with #2 FiberWire. I then amputated the biceps proximal to the tenodesis site and followed the tendon to the supraglenoid tubercle where it was amputated. This identified the lesser and greater tuberosities. The supraspinatus was partially torn along its articular side. Subscapularis peel was performed. Loose bodies were identified in the axillary pouch and retrieved. Inferior humeral head osteophyte was then resected with a rongeur. Humeral head was then dislocated anteriorly. Appropriate access to the humeral head was confirmed. I then subluxed the humeral head posteriorly with a Fukuda retractor placed around the posterior lip of the glenoid. Inferior capsule was tension. I was able to palpate the axillary nerve. Inferior capsule was then released to the 4 o'clock position of the glenoid face. 3 sided subscapularis release was performed with Bovie cautery. I then remove the Fukuda retractor and redislocated the shoulder anteriorly. I then made a anatomic neck cut of the cartilaginous surface of the humeral h ead. Sizing plate for a size # 3 stem was utilized to determine appropriate reaming size. A central pin was placed engaging the lateral cortex of the humerus. A size # 3 reamer was used to ream the humeral metaphysis and prepare for the inlay stem. A canal finding reamer was utilized prior to sequential broaching to a size # 3 short stem with excellent rotational and axial purchase in the humerus. I remove the broach handle left the size # [address] I then subluxed the humerus posterior to the glenoid. I then placed retractors around the posterior and anterior glenoid to expose the glenoid. Glenoid labrum was removed with Bovie cautery protecting the axillary nerve. We then used the custom guide from [employer] to position our centering pin, exiting approximately 25 mm from the joint surface along the anterior scapula. Guide was removed and pin was analyzed and compared to preoperative planning. It appeared to be in appropriate position. I elected to ream for a full wedge augmented baseplate. Glenoid was prepared in standard fashion. We then removed the reamer and used the cannulated drill for the short central post. Post and baseplate was assembled on the back table. We then inserted the baseplate and central post the assembled baseplate to an appropriate depth with good press-fit purchase. A Linn was used to confirm depth. Cortical screws then were placed in the peripheral holes with good purchase. The baseplate had excellent purchase and the entire scapula would rotate with rotation of the baseplate. We then impacted the 36 mm glenosphere with a standard eccentricity and tightened the locking screw mechanism. We then removed retractors and turned our attention back to the humerus. I placed a standard +0 millimeters retentive polyethylene insert. I then reduced the shoulder. There was excellent range of motion and stability in all planes of motion. We selected this as our final size. We removed trials from the humerus after final dislocation. I copiously irrigated the canal. Broach was placed on hand and then impacted to an appropriate depth. Final + 0 mm retentive polyethylene insert was placed. Final reduction was then performed. The subscapularis was then identified with a tagging suture. Repair would have been likely under undue tension and likely failed. I elected to not perform a subscapularis repair. We then copiously irrigated the wound with sterile Betadine and normal saline solution. We reapproximated the interval with 0 Vicryl suture. Subcutaneous layers were reapproximated with 2 -0 Vicryl suture. Skin was finally running V- Loc 3-0 Monocryl suture and Dermabond. A sterile silver Mepilex dressing was applied. Patient was then placed in an ultra sling. Patient tolerated procedure well without complication. She was positioned back in the supine position extubated in the operative suite. She was transferred to the [place] and subsequently to PACU in stable condition. Need for skilled bankruptcy assistant: Carlene Howe PA-C was critical to the outcome of the case. During the course of the procedure the physician bankruptcy assistant played a vital role. Her intimate knowledge of my steps in the procedure aided in safe and expedient completion of the procedure. The PA played a vital role in positioning particularly in obtaining the appropriate positioning. The PA was also vital in the retraction of soft tissues during the exposure and protecting vital structures. The PA was also vital and protecting soft tissues during times of bony cuts. She also played a vital role in closure with my direct supervision. The PA was also important during reduction and dislocation of the joint and trials intraoperatively. Intraoperative medications: 2 g Ancef IV, 1 g TXA IV x2 Post Operative Plan: Weightbearing: Nonweightbearing left upper extremity, okay for pendulums. Range of motion of wrist elbow and hand as tolerated. Antibiotics: 2 g Ancef IV prior to incision, 24 hours IV antibiotics postope ratively DVT Prophylaxis: Aspirin enteric-coated 81 mg twice daily starting tomorrow Henry: None Dressing: Maintain silver dressing x5 days. Okay to shower dressing on started on day 4 X-Rays: 2 weeks postop in the office Pain Medication: Oxycodone Rx upon discharge Follow-up: 2 weeks post-operatively with me in the office Surgical Findings: Severe left glenohumeral joint osteoarthritis. Partial articular sided supraspinatus tendon tearing. Stable left reverse shoulder arthroplasty following final reduction. Complications Complications: No Admit VTE Documentation VTE Present on Admission: No VTE Mechan Device Prophylaxis: SCD's VTE Pharm Prophylaxis ordered?: Yes
--- NOTE | 2024-10-02 13:48 | PCM.POST.ANE ---
Anesthesia: Postop Eval I Current Vital Signs Temperature: 97.3 F Pulse Rate: 91 Blood Pressure: 159/81 Respiratory Rate: 18 Pulse Ox: 98 Oxygen Delivery Method: Nasal Cannula Oxygen Flow Rate (L/min): 4 Assessment Airway patent: Yes Spontaneous unlabored respirations: Yes Mental status: Awake nausea: No Vomiting: No Anesthesia Complication: No Fluid Hydration Crystalloid volume administer (ml): 800 Total IV fluid infused: 800 Progress Note Anesthesia document: Postop Eval 1 completed: Yes
--- NOTE | 2024-10-02 14:47 | POSTOPAN2_ITS ---
Anesthesia Postop Eval I Sum Postop Eval Completion status Anesthesia document: Postop Eval 1 completed: Yes Anesthesia Postop Eval I Summary Anesthesia Postop Eval I Summary: Anesthesia Postop Eval I: Assessment Summary Airway patent Yes 10/02/24 13:49 SCREED [email or web address] Spontaneous unlabored Yes 10/02/24 13:49 SCREED [email or web address] respirations Mental status Awake 10/02/24 13:49 SCREED [email or web address] nausea No 10/02/24 13:49 SCREED [email or web address] Vomiting No 10/02/24 13:49 SCREED [email or web address] Anesthesia Postop Eval I: Fluid Summary Crystalloid volume administer 800 10/02/24 13:49 SCREED [email or web address] (ml) Colloids volume administered ( ml) Blood Product volume administered (ml) Total IV fluid infused 800 10/02/24 13:49 SCREED [email or web address] Anesthesia Postop Eval I: Summary Notes Anesthesia Complication No 10/02/24 13:49 SCREED [email or web address] Anesthesia Complication Comment: Post-operative progress note Anesthesia: Postop Eval II Evaluation Mental status: Awake Pain Level: 0 nausea: No Vomiting: No
--- NOTE | 2024-10-02 14:47 | PCM.POSTANE2 ---
Anesthesia Postop Eval I Sum Postop Eval Completion status Anesthesia document: Postop Eval 1 completed: Yes Anesthesia Postop Eval I Summary Anesthesia Postop Eval I Summary: Anesthesia Postop Eval I: Assessment Summary Airway patent Yes 10/02/24 13:49 DISTILLERY [email or web address] Spontaneous unlabored Yes 10/02/24 13:49 DISTILLERY [email or web address] respirations Mental status Awake 10/02/24 13:49 DISTILLERY [email or web address] nausea No 10/02/24 13:49 DISTILLERY LABORER.RWOO Vomiting No 10/02/24 13:49 DISTILLERY [email or web address] Anesthesia Postop Eval I: Fluid Summary Crystalloid volume administer 800 10/02/24 13:49 DISTILLERY [email or web address].RWOO (ml) Colloids volume administered ( ml) Blood Product volume administered (ml) Total IV fluid infused 800 10/02/24 13:49 DISTILLERY [email or web address] Anesthesia Postop Eval I: Summary Notes Anesthesia Complication No 10/02/24 13:49 DISTILLERY [email or web address].RWOO Anesthesia Complication Comment: Post-operative progress note Anesthesia: Postop Eval II Evaluation Mental status: Awake Pain Level: 0 nausea: No Vomiting: No
[2024-10-02] MEDS: Pramipexole Di-HCl 0.25 MG Tablet PO ×2 (17:06→20:25)
[2024-10-02] MEDS: 0.9% Saline Lock 10 ML Syringe IV (20:22)
[2024-10-02] MEDS: Cefazolin 1 GM/50 ML BAG IV (20:22)
[2024-10-02] MEDS: Senna/Docusate Sodium 1 Tablet 2 TABLET PO (20:26)
[2024-10-02] MEDS: Gabapentin 300 MG Capsule PO (20:28)
[2024-10-03] VITALS: BP 141/66; PULSE 57; RESP 16; TEMP 36.5; O2SAT 98
[2024-10-03] MEDS: Cefazolin 1 GM/50 ML BAG IV (03:43)
[2024-10-03 03:46] VITALS: BP 142/93; PULSE 66; RESP 16; TEMP 36.4; O2SAT 98
[2024-10-03] MEDS: Levothyroxine 112 MCG Tablet PO (05:28)
[2024-10-03] MEDS: Pramipexole Di-HCl 0.25 MG Tablet PO (05:28)
[2024-10-03] MEDS: Acetaminophen 500 MG Tablet 1000 MG PO (05:28)
[2024-10-03 06:34] LABS: Hematocrit 36.2 % (37-47); Hemoglobin 12.2 g/dL (12.0-15.0); Mean Corp Hgb Conc 33.7 g/dL (32-36); Mean Corpuscular Hgb 32.2 pg (27.0-32.0); Mean Corpuscular Volume 95.5 fL (81-99); Mean Platelet Vol. 9.4 fl (6.2-12.0); Platelet Count 280 K/mm3 (150-450); RBC Distribution Width CV 12.1 % (11.6-14.6); RBC Distribution Width SD 42.5 fl (35.1-43.9); Red Blood Count 3.79 M/mm3 (4.2-5.4); White Blood Count 12.3 K/mm3 (4.4-11.0)
[2024-10-03 07:39] LABS: Anion Gap 6 (5-15); BUN 9 mg/dL (7-18); BUN/Creat Ratio 12.6 RATIO (10-20); Calcium,Total 9.5 mg/dL (8.5-10.1); Chloride 107 mmol/L (98-107); Creatinine, Serum 0.72 mg/dL (0.55-1.02); EST Glomerular Filtration Rate 83 mL/min (>60); Est Glom Filt Rate - Afr Amer 100 mL/min (>60); Estimated Creatinine Clearance 53.96 ml/min; Glucose 156 mg/dL (74-106); Potassium 3.8 mmol/L (3.5-5.1); Sodium Level 138 mmol/L (136-145)
[2024-10-03] MEDS: Albuterol 2.5 MG/3 ML VIAL.NEB. INHALATION ×2 (07:50→13:56)
[2024-10-03] MEDS: Budesonide Respules 0.5 MG/2 ML AMPUL.NEB. INHALATION (07:50)
[2024-10-03 07:52] VITALS: PULSE 56; RESP 16; O2SAT 98
[2024-10-03 09:20] VITALS: BP 139/59; PULSE 82; RESP 16; TEMP 36.6; O2SAT 98
[2024-10-03] MEDS: Meloxicam 7.5 MG Tablet PO (09:22)
[2024-10-03] MEDS: Aspirin E.C. 81 MG Tablet PO (09:22)
[2024-10-03] MEDS: Senna/Docusate Sodium 1 Tablet 2 TABLET PO (09:22)
[2024-10-03] MEDS: Cyanocobalamin 500 MCG Tablet 1000 MCG PO (09:23)
[2024-10-03] MEDS: Cholecalciferol (Vit D3) 125 MCG CAPSULE (5,000 UNITS) PO (09:24)
--- NOTE | 2024-10-03 11:00 | CASEMGMT ---
SEBASTIAN ESPARZA Assessment: Face to Face with pt for initial transition planning/care coordination assessment. SEBASTIAN ESPARZA introduced self and role at [facility], pt voices understanding and consents to assessment. Pt is A&O x4 and answers all questions appropriately at this time. Pt sitting up in chair in no distress. Care providers, pharmacy, and demographics verified/updated. Strata: 1 Admitting Dx: L reverse total shoulder arthroplasty, ERAS PCP: [facility] Specialists: Aravind, Ortho; Kwesi, Pain management. Preferred Pharmacy: [facility] Insurance: [employer] [facility] Prescription Benefit: yes LNOK: Significant other, Junior Living Arrangements: Pt lives with significant other in a 1 story home with 1 step to enter. ADLs: Pt states I at baseline with ADLs and IADLs. Transportation: Pt drives self and denies concerns with transportation. DME: walker, shower seat, grab bars. HHC/SNF: Pt denies Hx of. Pt states no concerns with going home at time of dc. Pt states no further concerns/needs. CM to follow. Advised pt to ask CM if any further question/concerns/needs arise, voices understanding. Pt Goal: Home Plan: Home with family support, OP therapy to start 10/17/24. Donna CORTES CM
--- NOTE | 2024-10-03 11:14 | PCM.PN.ORT ---
Subjective Subjective Patient seen and examined. She reports some soreness in left shoulder controlled with current pain regimen. Denies any fevers, chills, nausea vomiting, chest pain shortness of breath. Patient is dressed and hoping to go home today. Denies any numbness or tingling left upper extremity. She believes the nerve block is completely worn off. Objective Data Objective Data Vital Signs: Vital Signs Temp Pulse Resp BP Pulse Ox O2 Del Method O2 Flow Rate 97.9 F 82 16 139/59 H 98 Room Air 4 10/03/24 09:20 10/03/24 09:20 10/03/24 09:20 10/03/24 09:20 10/03/24 09:20 10/03/24 09:20 10/02/24 13:49 Oxygen Flow Rate (L/min) 4 Oxygen Delivery Method Room Air Weight: 174 lb 2.643 oz Body Mass Index (BMI) 30.8 Intake & Output: Intake and Output for Last 24 Hours 10/01/24 10/02/24 10/03/24 23:59 23:59 23:59 Intake Total 2392 / 2642 900 / 900 Balance 2392 / 2642 900 / 900 Lab / Micro Data 10/03/24 06:22 10/03/24 06:22 Labs: Laboratory Results - last 24 hr 10/02/24 10:27: POC Glucose 119 H 10/03/24 06:22: WBC 12.3 H, RBC 3.79 L, Hgb 12.2, Hct 36.2 L, MCV 95.5, MCH 32.2 H, MCHC 33.7, RDW Std Deviation 42.5, RDW Coeff of Kisha 12.1, Plt Count 280, MPV 9.4, Sodium 138, Potassium 3.8, Chloride 107, Carbon Dioxide 25.0, Anion Gap 6, BUN 9, Creatinine 0.72, Estim Creat Clear Calc 53.96, Est GFR (MDRD) Af Amer 100, Est GFR (MDRD) Non-Af 83, BUN/Creatinine Ratio 12.6, Glucose 156 H, Calcium 9.5 Micro: Microbiology 09/07/24 08:46 Swab (Method) Nasal Screen MRSA/MSSA - Final Radiography Diagnostic Testing: Radiology Impression Shoulder X-Ray 10/02/24 13:14 IMPRESSION: Status post left reverse shoulder replacement. Vascular congestion. Electronically Signed: Luis Cleveland MD at 14:19 EST , Physical Exam Narrative General - A&Ox3, NAD. VSS/AF. Left upper Extremity - SILT & motor intact in radial, ulnar, musculocutaneous, axillary, and median nerve distributions. Radial, ulnar pulses 2+. Compartments soft and compressible. BCR in finger tips. Incisional dressing C/D/I. Calves are soft nontender bilaterally Assessment & Plan Assessment/Plan (1) Presence of left artificial shoulder joint: PLAN: POD# 1 s/p left RSA -Patient doing quite well. Discharge home today. Follow-up in 2 weeks for wound check, x-rays and initiation of physical therapy. - Pain control - OT - DVT PPX -Multimodal with SCDs, early mobilization, aspirin - Case management - D/C planning
--- NOTE | 2024-10-03 11:16 | DCINST_ITS ---
Discharge Instructions DC O2, CPAP, BIPAP needs Home O2 Discharge instructions: No Follow Up Care Test Results: Test results from this visit will be discussed in further detail at your follow- up appointment, if applicable. Discharge Plan Admission Admit Date/Time: 10/02/24 13:22 Primary Reason for Your Visit: Left shoulder replacement Attending Provider: Jimy Nazario Primary Care Provider: Shira Hiadlgo Consulting Providers: Dank Parra Instructions Additional Instructions / Restrictions: Follow preprinted instructions from your surgeons office Discharge Orders/Prescriptions Prescriptions: New acetaminophen 500 mg Tablet 1,000 mg PO Q8 30 Days Qty: 180 0RF oxycodone 5 mg Tablet 5 - 10 mg PO Q4H PRN PRN (Reason: Pain Score 4-10) 7 Days Qty: 28 0RF Continued albuterol sulfate [Ventolin HFA] 1 INHALER inhaler 2 puff inhalation Q6H PRN PRN (Reason: Dyspnea/Wheezing/Sob) Patient Comments: WHEEZING/SHORTNESS OF BREATH aspirin [Adult Aspirin Regimen] 81 mg tablet,delayed release (DR/EC) 81 mg PO DAILY celecoxib 200 mg capsule 200 mg PO DAILY gabapentin 300 mg capsule 300 mg PO QHS levothyroxine 112 mcg tablet 112 mcg PO DAILY omeprazole 40 mg capsule,delayed release(DR/EC) 40 mg PO DAILY PRN PRN (Reason: GERD) pramipexole 0.75 mg tablet 0.75 mg PO QHS cholecalciferol (vitamin D3) [Vitamin D3] 125 mcg (5,000 unit) tablet 125 mcg PO DAILY mecobalamin (vitamin B12) 1,000 mcg tablet,chewable 1,000 mcg PO DAILY fluticasone propion-salmeterol [Advair Diskus] 100-50 mcg/dose blister with device 1 inh inhalation DAILY PRN PRN (Reason: shortness of breath) sennosides-docusate sodium [Stool Softener-Stimulant Laxat] 1 TABLET tablet 1 tab-cap PO DAILY Patient Comments: STOOL SOFTENER Held tramadol 50 mg tablet 25 - 50 mg PO BID PRN PRN (Reason: pain) Hold Instructions: Resume on 10/10/24. Do not take tramadol and oxycodone together. Ok to restart tramadol when not taking oxycodone Discontinued acetaminophen [Acetaminophen Extra Strength] 500 mg tablet 500 mg PO Q6H PRN (Reason: pain) Referrals / Follow Up: Shira Hidalgo DO [Primary Care Provider] - Jimy Nazario DO [Med Staff - Active Staff] - Within 2 Weeks Disposition Disposition (needs filled in before D/C Order can be placed): Home, Self Care
--- NOTE | 2024-10-03 11:22 | CASEMGMT ---
Met with pt to complete [place] form. [place] form explained to pt at this time who voiced understanding and signed form. Original form placed in pt?s chart and copy provided to the pt.
[2024-10-03 12:18] VITALS: BP 117/54; PULSE 63; RESP 16; TEMP 36.6; O2SAT 98
[2024-10-03] MEDS: oxyCODONE 5 MG Tablet PO ×2 (12:38→13:34)
[2024-10-03 13:57] VITALS: PULSE 57; RESP 16
== END 2024-10-03 14:31 | disposition home or self-care (01) ==
LOC: SDC 15:53 → MS3 15:53
PROVIDERS: Anesthesiology; Admitting Provider Student in an Organized Health Care Education/Training Program; PCP Internal Medicine; Referring Provider Student in an Organized Health Care Education/Training Program; Visit Provider Student in an Organized Health Care Education/Training Program
PROC: (CPT 23472; principal; 2024-10-02 11:20)
DX: M19.012 Primary osteoarthritis, left shoulder (principal); J45.909 Unspecified asthma, uncomplicated; R25.1 Tremor, unspecified; Z79.899 Other long term (current) drug therapy; Z79.82 Long term (current) use of aspirin; Z79.890 Hormone replacement therapy; E07.9 Disorder of thyroid, unspecified; K21.9 Gastro-esophageal reflux disease without esophagitis; M81.0 Age-related osteoporosis without current pathological fracture
CPT/HCPCS: 23472; 01638; 64415; 36415; 73030; 80048; 82040; 82962; 83735; 84443; 85025; 85027; 87081; 88305; 88311; 93005; 94640; 94668; 96365; 96366; 97166; 99221; C1713; C1776; A4216; G0378; J2405; J3475

== ENCOUNTER 2025-03-12 07:23 | Inpatient (IN) | payer MEDICARE, SELFPAY ==
[2025-03-12] VITALS (8 sets, daily range): BP systolic 95–161; BP diastolic 65–140; PULSE 56–82; RESP 13–19; TEMP 36.5–37.1; O2SAT 96–100; BMI 31.9; BMI 32.3
--- NOTE | 2025-03-12 07:46 | CT_ITS ---
PROCEDURE: CTA ABD/PELVIS W/WO CONTRAST 03/12/2025 REASON FOR EXAM: GI BLEED TECHNIQUE: CTA ABD/PELVIS W/WO CONTRAST Multiplanar Sagittal and Coronal images were obtained. CONTRAST: Not reported One or more dose reduction techniques were used (e.g., Automated exposure control, adjustment of the mA and/or kV according to patient size, use of iterative reconstruction technique). RADIATION DOSE SUMMARY: DLP: 1029.79 mGycm COMPARISON: None FINDINGS: Aorta: Atherosclerotic calcifications are noted. Iliac Arteries: Unremarkable Celiac: Patent SMA: Patent MARIO : Patent Right Renal: Patent Left Renal: Patent Other Findings: The liver, spleen, gallbladder, pancreas, adrenals, and kidneys are unremarkable. There is no adenopathy. There is no free air or free fluid. Gas and stool is noted throughout the colon. Radiopaque sutures are noted at the proximal sigmoid. There is diverticulosis of the sigmoid with no visible acute diverticulitis. Small bowel loops are not distended. The appendix is not demonstrated. Hardware is noted in the right and left hip. There is no visible acute bony abnormality. There is a 1.7 cm uncomplicated fat containing umbilical hernia. CT/CTA Abd/Pelvis W/WO Contrast IMPRESSION: CTA of the abdomen and pelvis is within normal limits. Radiopaque sutures are noted at the proximal sigmoid. There is diverticulosis of the sigmoid with no visible acute diverticulitis. Reading Location: [facility]
--- NOTE | 2025-03-12 07:48 | EX.ED.DYSGE1 ---
HPI History of Present Illness Chief Complaint: GI Bleed Narrative Narrative: Patient is a 84-year-old female with past medical history of anxiety, hypothyroidism, GERD, asthma who presents to the emergency department the chief complaint of dark blood while having a bowel movement this morning. Patient states that she woke up this morning and noted that she states that she felt like she had passed gas and when she did this she noted that there was a large clot with dark red coming out of her rectum. Patient states that nothing like this is ever happened before and states that she is not any blood thinning medications. Patient states that she is on celeoxib for her arthritis and states that she has been on this for many years and has not had any issues. Patient's states that she has not had any NSAID at use otherwise and states that she uses Tylenol as well as needed for her arthritis on top of this medication. Patient states that she had a one-time episode this morning when she first got up and has not had anything since. [facility] Medical History Bernadette-prosthetic femoral shaft fracture Loss of hearing Wears glasses Wears dentures Post-menopausal Anxiety Thyroid disease Ambulates with cane Arthritis Restless legs Back pain Gastric reflux Asthma Shortness of breath on exertion Non-smoker Leg cramps History of pain when walking History of stress test History of echocardiogram History of Holter monitoring Angina pectoris Pain Home Medications ?Medication ?Instructions ?Recorded ?Last Taken ?Type albuterol sulfate 90 mcg/actuation 2 puff inhalation Q6H PRN PRN 06/19/13 03/08/25 History aerosol inhaler (Ventolin HFA) Dyspnea/Wheezing/Sob aspirin 81 mg tablet,delayed 81 mg PO DAILY 09/04/24 03/11/25 History release (Adult Aspirin Regimen) celecoxib 200 mg capsule 200 mg PO DAILY 09/04/24 03/11/25 History cholecalciferol (vitamin D3) 125 125 mcg PO DAILY 09/04/24 Unknown History mcg (5,000 unit) tablet (Vitamin D3) gabapentin 300 mg capsule 300 mg PO QHS 09/04/24 03/11/25 History levothyroxine 112 mcg tablet 112 mcg PO DAILY 09/04/24 03/11/25 History mecobalamin (vitamin B12) 1,000 1,000 mcg PO DAILY 09/04/24 03/11/25 History mcg chewable tablet omeprazole 40 mg capsule,delayed 40 mg PO DAILY PRN GERD 09/04/24 03/11/25 History release pramipexole 0.75 mg tablet 0.75 mg PO QHS RLS 09/04/24 03/11/25 History sennosides 8.6 mg-docusate sodium 1 tab-cap PO DAILY 09/04/24 03/11/25 History 50 mg tablet (Stool Softener-Stimulant Laxative) tramadol 50 mg tablet 25 - 50 mg PO Q12H PRN pain 09/04/24 Unknown History Held on 10/03/24. Instructions: Resume on 10/10/24. Do not take tramadol and oxycodone together. Ok to restart tramadol when not taking oxycodone acetaminophen 500 mg tablet 1,000 mg (2 x 500 mg) PO Q8 30 10/03/24 03/11/25 Rx days #180 tabs Allergy/AdvReac Type Severity Reaction Status Date / Time fexofenadine AdvReac Mild Nausea Verified 03/12/25 07:26 Sulfa (Sulfonamide AdvReac Mild Nausea Verified 03/12/25 07:26 Antibiotics) terfenadine AdvReac Mild Nausea Verified 03/12/25 07:26 Surgical History Hx of colonoscopy Hx of eye surgery Hx of total shoulder replacement Hx of appendectomy History of revision of total hip arthroplasty Hx of total hip arthroplasty Hx of tubal ligation Hx of laparoscopy Hx of total hip arthroplasty Social History Smoking Status: Never smoker ROS ROS ED ROS Narrative Constitutional: Complains of lightheadedness denies fevers, chills, headaches Eyes: Denies changes vision double vision blurry vision Cardiovascular: Denies chest pain Respiratory: Denies coughing wheezing shortness of breath Abdomen: Denies abdominal pain nausea vomiting complains of dark stool as noted above : Denies urinary symptoms Neurological: Denies numbness, weakness, tingling Musculoskeletal: Denies back pain Skin: Denies any rashes or lesions EXAM Physical Exam Narrative Exam Narrative: General: Patient was lying in bed rest comfortably did not appear to be in acute distress Head: Atraumatic, normocephalic Eyes: PERRL bilaterally, EOMI bilateral, no conjunctival injection noted Neck: Soft and supple, trachea midline Cardiovascular: Regular rate and rhythm Respiratory: Clear to auscultation bilaterally Abdomen: Soft, nondistended, no tenderness palpation no rebound or guarding exam Extremities: +4/5 strength noted in the bilateral upper and lower extremities, no pedal edema or exam Neurological: Patient following commands knew that she was at [facility] year is 2024 Skin: Warm, dry, intact no rashes or lesions noted Const Vital Signs: 03/12/25 07:24 03/12/25 08:24 03/12/25 09:00 Temperature 98.1 F Temperature Source Temporal Pulse Rate 82 59 L Respiratory Rate 19 H 14 Blood Pressure 155/76 H 146/67 H 147/66 H Blood Pressure Mean 102 93 93 Pulse Ox 98 97 Oxygen Delivery Method Room Air Room Air 03/12/25 10:00 Temperature Temperature Source Pulse Rate 56 L Respiratory Rate 17 Blood Pressure 142/65 H Blood Pressure Mean 90 Pulse Ox 96 Oxygen Delivery Method Room Air MDM MDM MDM Narrative Medical decision making narrative: Patient is a 84-year-old female who presented to the emergency department the chief complaint of having large bowel movement with dark stool and passing clots this morning. On the differential diagnose includes but not limited to diverticulosis, diverticulitis, AAA, peptic ulcer disease, gastritis, upper GI bleed. Once workup is obtained reviewed she will be reevaluated. Patient be given IV fluids, Protonix. Patient brought in a sample in a container and was noted the very dark in nature with liquid noted. Patient's CBC reviewed showed a white blood count of 5.2, hemoglobin of 12.6, platelet count of 253. Patient's INR normal at 1, PT of 13. Patient sodium was 130, potassium normal at 4.5, creatinine was 0.79. Patient's AST and ALT were 25 and 16 respectively lipase normal at 36. Patient's CTA abdomen pelvis with IV contrast reviewed showed radiopaque structures are noted within the proximal sigmoid there is diverticulosis of the sigmoid with no visible acute diverticulitis. Reached out and spoke with president and cmo Dr. Moss who recommends admission. Will discuss case with hospitalist for admission for her concern for upper GI bleed with passing large clots and a large volume of dark maroon stool. I went back and evaluate the patient she states that she was having another bowel movement and was requesting help from nursing staff. Discussed case with hospitalist Dr. Oconnor who accept patient for admission. Notified the patient and significant other bedside they are agreeable this plan all course concerns answered. Lab Data Labs: Laboratory Results - last 24 hr 03/12/25 07:35 WBC 5.2 RBC 3.86 L Hgb 12.6 Hct 36.9 L MCV 95.6 MCH 32.6 H MCHC 34.1 RDW Std Deviation 45.5 H RDW Coeff of Kisha 12.9 Plt Count 253 MPV 9.0 Immature Gran % (Auto) 0.400 Neut % (Auto) 59.3 Lymph % (Auto) 26.4 [place] % (Auto) 8.4 Eos % (Auto) 4.4 Baso % (Auto) 1.1 H Absolute Neuts (auto) 3.1 Absolute Lymphs (auto) 1.38 Nucleated RBC % 0 PT 13.0 INR 1.0 APTT 24.1 Sodium 138 Potassium 4.5 Chloride 105 Carbon Dioxide 22.7 Anion Gap 11 BUN 14 Creatinine 0.79 Estim Creat Clear Calc 53.96 Est GFR (MDRD) Non-Af 74 BUN/Creatinine Ratio 18.1 Glucose 101 H Calcium 9.3 Total Bilirubin 0.35 AST 25 ALT 16 Alkaline Phosphatase 76 Total Protein 7.0 Albumin 4.3 Globulin 2.7 Albumin/Globulin Ratio 1.6 Lipase 36 Radiography Diagnostic Testing: Clinical Impression(s) from Imaging Studies Abdomen/Pelvis CTA 03/12/25 07:46 IMPRESSION: CTA of the abdomen and pelvis is within normal limits. Radiopaque sutures are noted at the proximal sigmoid. There is diverticulosis of the sigmoid with no visible acute diverticulitis. Reading Location: [facility] Discharge Plan Triage Chief Complaint: GI Bleed ED Provider: Samson Verdugo Dx/Rx/DC Orders Clinical Impression: GI bleed Prescriptions: No Action albuterol sulfate [Ventolin HFA] 1 INHALER inhaler 2 puff inhalation Q6H PRN PRN (Reason: Dyspnea/Wheezing/Sob) Patient Comments: WHEEZING/SHORTNESS OF BREATH aspirin [Adult Aspirin Regimen] 81 mg tablet,delayed release (DR/EC) 81 mg PO DAILY celecoxib 200 mg capsule 200 mg PO DAILY tramadol 50 mg tablet 25 - 50 mg PO Q12H PRN (Reason: pain) gabapentin 300 mg capsule 300 mg PO QHS levothyroxine 112 mcg tablet 112 mcg PO DAILY omeprazole 40 mg capsule,delayed release(DR/EC) 40 mg PO DAILY PRN (Reason: GERD) Patient Comments: pt states has been taking qod pramipexole 0.75 mg tablet 0.75 mg PO QHS cholecalciferol (vitamin D3) [Vitamin D3] 125 mcg (5,000 unit) tablet 125 mcg PO DAILY Patient Comments: pt states does not take regularly mecobalamin (vitamin B12) 1,000 mcg tablet,chewable 1,000 mcg PO DAILY sennosides-docusate sodium [Stool Softener-Stimulant Laxat] 1 TABLET tablet 1 tab-cap PO DAILY Patient Comments: STOOL SOFTENER acetaminophen 500 mg Tablet 1,000 mg PO Q8 30 Days Qty: 180 0RF Primary Care Provider: Shira Hidalgo Referrals: Shira Hidalgo DO [Primary Care Provider] - Print Language: Macanese Disposition Disposition: Acute Care Hospital [facility]
[2025-03-12] MEDS: 0.9% Normal Saline (1000mL) 1,000 ML 999 ML IV (07:54)
[2025-03-12 07:56] LABS: Absolute Lymphocyte Count 1.38 X10^3/uL (0.83-4.51); Absolute Neutrophil Count 3.1 X10^3/uL (2.0-7.7); Basophil# 0.06 X10^3/uL; Basophil% 1.1 % (0-1); Eosinophil# 0.23 X10^3/uL; Eosinophils% 4.4 % (0-5); Hematocrit 36.9 % (37-47); Hemoglobin 12.6 g/dL (12.0-15.0); Lymphocyte # 1.38 X10^3/ul (0.83-4.51); Lymphocyte % 26.4 % (19-41); Mean Corp Hgb Conc 34.1 g/dL (32-36); Mean Corpuscular Hgb 32.6 pg (27.0-32.0); Mean Corpuscular Volume 95.6 fL (81-99); Monocyte# 0.44 X10^3/uL; Monocyte% 8.4 % (0-10); NRBC Flagged by Analyzer 0 % (0-5); Neutrophil % 59.3 % (47-70); Platelet Count 253 K/mm3 (150-450); RBC Distribution Width CV 12.9 % (11.6-14.6); RBC Distribution Width SD 45.5 fl (35.1-43.9); Red Blood Count 3.86 M/mm3 (4.2-5.4); White Blood Count 5.2 K/mm3 (4.4-11.0)
[2025-03-12] MEDS: Pantoprazole Sodium 40 MG in 0.9% Normal Saline (100mL MB+) 100 ML 300 MG IV ×2 (08:36→21:29)
[2025-03-12 08:39] LABS: Partial Thromboplast Time 24.1 Seconds (24.1-36.2)
[2025-03-12 08:40] LABS: ALB/GLOB Ratio 1.6 RATIO (0.9-2.4); AST(SGOT) 25 U/L (<=31); Alanine Aminotransfer ALT/SGPT 16 U/L (<=34); Albumin, Serum 4.3 g/dL (3.4-4.8); Alkaline Phosphatase 76 U/L (35-104); Anion Gap 11 (5-15); BUN 14 mg/dL (4-19); BUN/Creat Ratio 18.1 RATIO (10-20); Calcium,Total 9.3 mg/dL (7.6-11.0); Carbon Dioxide 22.7 mmol/L (21.0-32.0); Chloride 105 mmol/L (98-108); Creatinine, Serum 0.79 mg/dL (0.70-1.20); EST Glomerular Filtration Rate 74 (>60); Estimated Creatinine Clearance 53.96 ml/min (50-250); Globulin 2.7 g/dL (2.2-4.2); Glucose 101 mg/dL (70-99); Lipase 36 U/L (13-75); Potassium 4.5 mmol/L (3.3-5.1); Sodium Level 138 mmol/L (133-145); Total Bilirubin 0.35 mg/dL (0.00-1.30)
--- NOTE | 2025-03-12 10:44 | ED.RN ---
Pt. had large episode of bright red blood coming from rectum. Bled through adult brief onto sheets. Dr Oconnor at bedside and notified.
--- NOTE | 2025-03-12 10:59 | PCM.HP.STD ---
[facility] - General General Date of Service: 03/12/25 Chief Complaint: rectal bleeding. [facility] Narrative NUVIA BAUMAN, is a 84 F who presents with rectal bleeding. Began this morning where she had some blood as well as clots and presented to the emergency room. While in the emergency room she even had much larger volume bleeding and clots saturating her undergarments as well as spilling out under the bed sheets. She underwent a CT angiogram of her abdomen pelvis that did not show any obvious bleeding but did show a radiopaque lesion noted (this was before the copious amount of bleeding she had afterwards). Patient received pantoprazole IV in the emergency room. Gastroenterology was contacted in the emergency room. Patient has never had any bleeding like this before. Patient does take aspirin and Celebrex. Patient's last colonoscopy was when she is around 71 years old with reportedly normal. [facility] Medical History Bernadette-prosthetic femoral shaft fracture Loss of hearing Wears glasses Wears dentures Post-menopausal Anxiety Thyroid disease Ambulates with cane Arthritis Restless legs Back pain Gastric reflux Asthma Shortness of breath on exertion Non-smoker Leg cramps History of pain when walking History of stress test History of echocardiogram History of Holter monitoring Angina pectoris Pain Home Medications ?Medication ?Instructions ?Recorded ?Last Taken ?Type albuterol sulfate 90 mcg/actuation 2 puff inhalation Q6H PRN PRN 06/19/13 03/08/25 History aerosol inhaler (Ventolin HFA) Dyspnea/Wheezing/Sob aspirin 81 mg tablet,delayed 81 mg PO DAILY 09/04/24 03/11/25 History release (Adult Aspirin Regimen) celecoxib 200 mg capsule 200 mg PO DAILY 09/04/24 03/11/25 History cholecalciferol (vitamin D3) 125 125 mcg PO DAILY 09/04/24 Unknown History mcg (5,000 unit) tablet (Vitamin D3) gabapentin 300 mg capsule 300 mg PO QHS 09/04/24 03/11/25 History levothyroxine 112 mcg tablet 112 mcg PO DAILY 09/04/24 03/11/25 History mecobalamin (vitamin B12) 1,000 1,000 mcg PO DAILY 09/04/24 03/11/25 History mcg chewable tablet omeprazole 40 mg capsule,delayed 40 mg PO DAILY PRN GERD 09/04/24 03/11/25 History release pramipexole 0.75 mg tablet 0.75 mg PO QHS RLS 09/04/24 03/11/25 History sennosides 8.6 mg-docusate sodium 1 tab-cap PO DAILY 09/04/24 03/11/25 History 50 mg tablet (Stool Softener-Stimulant Laxative) tramadol 50 mg tablet 25 - 50 mg PO Q12H PRN pain 09/04/24 Unknown History Held on 10/03/24. Instructions: Resume on 10/10/24. Do not take tramadol and oxycodone together. Ok to restart tramadol when not taking oxycodone acetaminophen 500 mg tablet 1,000 mg (2 x 500 mg) PO Q8 30 10/03/24 03/11/25 Rx days #180 tabs Allergy/AdvReac Type Severity Reaction Status Date / Time fexofenadine AdvReac Mild Nausea Verified 03/12/25 07:26 Sulfa (Sulfonamide AdvReac Mild Nausea Verified 03/12/25 07:26 Antibiotics) terfenadine AdvReac Mild Nausea Verified 03/12/25 07:26 Family History (Updated 03/12/25 @ 11:[address] Dexter Oconnor DO) Mother Heart disease Surgical History Hx of colonoscopy Hx of eye surgery Hx of total shoulder replacement Hx of appendectomy History of revision of total hip arthroplasty Hx of total hip arthroplasty Hx of tubal ligation Hx of laparoscopy Hx of total hip arthroplasty Social History Smoking Status: Never smoker ROS ROS Narrative some mild bloating in her abdomen. All review of systems were negative except as mentioned above in the history of present illness and the other review of systems. Vital Signs Vital Signs Vital Signs: 03/12/25 07:24 03/12/25 08:24 03/12/25 09:00 Temperature 36.7 C Temperature Source Temporal Pulse Rate 82 59 L Respiratory Rate 19 H 14 Blood Pressure 155/76 H 146/67 H 147/66 H Blood Pressure Mean 102 93 93 Pulse Ox 98 97 Oxygen Delivery Method Room Air Room Air 03/12/25 10:00 Temperature Temperature Source Pulse Rate 56 L Respiratory Rate 17 Blood Pressure 142/65 H Blood Pressure Mean 90 Pulse Ox 96 Oxygen Delivery Method Room Air Weight Weight: 81.783 kg Body Mass Index (BMI) 31.9 Physical Exam Const alert and no apparent distress HEENT normocephalic and head/scalp atraumatic Resp normal respiratory effort, no retractions, no use of accessory muscles and clear to auscultation bilaterally Cardio regular rate, regular rhythm, S1 normal heart sound and S2 normal heart sound GI normal to inspection, nondistended, normoactive bowel sounds, soft to palpation, non-tender and non-distended GI Narrative: Did have some bleeding was present in the room. But it was small amounts and just saturating the undergarments she was wearing. Extremity normal to inspection and no clubbing, cyanosis or edema Skin Skin Narrative: No bruising. No rashes or lesions. Neuro moves all extremities Sensorium / Orientation: awake and alert Psych affect normal Results Lab / Micro Data 03/12/25 07:35 03/12/25 07:35 Labs: Laboratory Results - last 24 hr 03/12/25 07:35: WBC 5.2, RBC 3.86 L, Hgb 12.6, Hct 36.9 L, MCV 95.6, MCH 32.6 H, MCHC 34.1, RDW Std Deviation 45.5 H, RDW Coeff of Kisha 12.9, Plt Count 253, MPV 9.0, Immature Gran % (Auto) 0.400, Neut % (Auto) 59.3, Lymph % (Auto) 26.4, [place] % (Auto) 8.4, Eos % (Auto) 4.4, Baso % (Auto) 1.1 H, Absolute Neuts (auto) 3.1, Absolute Lymphs (auto) 1.38, Nucleated RBC % 0, PT 13.0, INR 1.0, APTT 24.1, Sodium 138, Potassium 4.5, Chloride 105, Carbon Dioxide 22.7, Anion Gap 11, BUN 14, Creatinine 0.79, Estim Creat Clear Calc 53.96, Est GFR (MDRD) Non-Af 74, BUN/Creatinine Ratio 18.1, Glucose 101 H, Calcium 9.3, Total Bilirubin 0.35, AST 25, ALT 16, Alkaline Phosphatase 76, Total Protein 7.0, Albumin 4.3, Globulin 2.7, Albumin/Globulin Ratio 1.6, Lipase 36 Imaging Radiology Impression Abdomen/Pelvis CTA 03/12/25 07:46 IMPRESSION: CTA of the abdomen and pelvis is within normal limits. Radiopaque sutures are noted at the proximal sigmoid. There is diverticulosis of the sigmoid with no visible acute diverticulitis. Reading Location: [facility] Assessment & Plan Assessment/Plan (1) GI bleed: PLAN: With a large quantity of blood being expelled with clots. She is not having any abdominal pain which makes me concerned that this may be more related with diverticulosis or internal hemorrhoids. She did undergo a CTA of her abdomen pelvis that did note radiopaque structures noted in the proximal sigmoid. I suspect that was probably just the large amount of blood and clot that she had yet to expel. At this point time seems that the bleeding may be slowly subsiding. Will continue to monitor her hemoglobin closely. GI has been contacted by the emergency room and will be formally consulted for hospitalization. Patient may need a another colonoscopy. Her previous colonoscopies have been for screening purposes only and that is why it was last done when she was 71 years old. For now, we will continue with IV pantoprazole but likely to discontinue in the next day or 2 as I do not feel this is an upper source of GI bleeding. Hemoglobin is currently stable at 12.6 but I do suspect it to drop though perhaps not to the level requiring transfusion. Will cycle her hemoglobin every 6 hours. Additionally, will hold off on Celebrex and aspirin PLAN: Plan Chronic conditions Hypothyroidism: Continue levothyroxine Restless legs continue with pramipexole and gabapentin VTE prophylaxis: Moderate risk. SCDs. No chemical prophylaxis given the bleeding. CODE STATUS: Addressed with the patient. Patient wishes to be full code. He does have a living well and address his uncontrolled care if she wants to vegetative state. Charges/Coding Visit Charges Inpatient E&M: 94139 Init Hosp L3
[2025-03-12] MEDS: 0.9% Normal Saline (1000mL) 1,000 ML 125 ML IV ×2 (12:41→21:08)
[2025-03-12 13:40] LABS: Hemoglobin 10.4 g/dL (12.0-15.0)
[2025-03-12] MEDS: Acetaminophen 500 MG Tablet 1000 MG PO ×2 (14:11→21:07)
[2025-03-12 17:27] LABS: Hematocrit 27.8 % (37-47); Hemoglobin 9.4 g/dL (12.0-15.0)
[2025-03-12] MEDS: Gabapentin 300 MG Capsule PO (21:06)
[2025-03-12] MEDS: Pramipexole Di-HCl 0.25 MG Tablet 0.75 MG PO (21:07)
[2025-03-13 00:35] LABS: Hematocrit 24.4 % (37-47); Hemoglobin 8.2 g/dL (12.0-15.0)
[2025-03-13 04:00] VITALS: BP 115/55; PULSE 59; RESP 16; TEMP 36.2; O2SAT 97
[2025-03-13 05:13] LABS: Absolute Lymphocyte Count 1.59 X10^3/uL (0.83-4.51); Absolute Neutrophil Count 3.6 X10^3/uL (2.0-7.7); Basophil# 0.05 X10^3/uL; Basophil% 0.9 % (0-1); Eosinophil# 0.21 X10^3/uL; Eosinophils% 3.6 % (0-5); Hematocrit 27.1 % (37-47); Hemoglobin 8.9 g/dL (12.0-15.0); Lymphocyte # 1.59 X10^3/ul (0.83-4.51); Lymphocyte % 27.2 % (19-41); Mean Corp Hgb Conc 32.8 g/dL (32-36); Mean Corpuscular Hgb 32.2 pg (27.0-32.0); Mean Corpuscular Volume 98.2 fL (81-99); Mean Platelet Vol. 8.8 fl (6.2-12.0); Monocyte% 6.8 % (0-10); NRBC Flagged by Analyzer 0 % (0-5); Neutrophil # 3.56 X10^3/uL (2.7-7.7); Platelet Count 216 K/mm3 (150-450); RBC Distribution Width SD 46.2 fl (35.1-43.9); Red Blood Count 2.76 M/mm3 (4.2-5.4); White Blood Count 5.8 K/mm3 (4.4-11.0)
[2025-03-13 05:20] LABS: International Normalized Ratio 1.1
[2025-03-13 05:21] LABS: Partial Thromboplast Time 24.9 Seconds (24.1-36.2)
[2025-03-13] MEDS: Levothyroxine 112 MCG Tablet PO (05:23)
[2025-03-13] MEDS: Acetaminophen 500 MG Tablet 1000 MG PO ×3 (05:24→21:07)
[2025-03-13 05:40] LABS: Anion Gap 7 (5-15); BUN 10 mg/dL (4-19); BUN/Creat Ratio 17.6 RATIO (10-20); Calcium,Total 8.2 mg/dL (7.6-11.0); Carbon Dioxide 22.9 mmol/L (21.0-32.0); Chloride 106 mmol/L (98-108); Creatinine, Serum 0.58 mg/dL (0.70-1.20); EST Glomerular Filtration Rate 90 (>60); Estimated Creatinine Clearance 54.27 ml/min (50-250); Glucose 101 mg/dL (70-99); Potassium 3.9 mmol/L (3.3-5.1); Sodium Level 136 mmol/L (133-145)
[2025-03-13 05:41] LABS: AST(SGOT) 18 U/L (<=31); Alanine Aminotransfer ALT/SGPT 12 U/L (<=34); Albumin, Serum 3.7 g/dL (3.4-4.8); Alkaline Phosphatase 60 U/L (35-104); Bilirubin, Direct 0.17 mg/dL (0.00-0.30); Globulin 1.8 g/dL (2.2-4.2); Protein, Total 5.5 g/dL (5.9-8.4)
--- NOTE | 2025-03-13 05:55 | EKG12_ITS ---
Test Reason : pre op Blood Pressure : */* mmHG Vent. Rate : 58 BPM Atrial Rate : 58 BPM P-R Int : 166 ms QRS Dur : 132 ms QT Int : 496 ms P-R-T Axes : 24 -31 162 degrees QTcB Int : 486 ms Sinus bradycardia Left axis deviation Left bundle branch block Abnormal ECG When compared with ECG of 07-Sep-2024 08:29, Nonspecific T wave abnormality now evident in Inferior leads T wave inversion now evident in Lateral leads Confirmed by WOLFGANG GOODWIN, ARON ([id number]), newspaper or periodical editor MIKE ALARCON ([id number]) on 03/13/2025 10:55:55 AM Referred By: Confirmed By: ARON GOSS MD
[2025-03-13] MEDS: Pantoprazole Sodium 40 MG in 0.9% Normal Saline (100mL MB+) 100 ML 300 MG IV ×2 (08:52→21:07)
[2025-03-13 08:55] VITALS: BP 124/69; PULSE 62; RESP 18; TEMP 36.3; O2SAT 95
--- NOTE | 2025-03-13 09:36 | PCM.PN.HOSP ---
Reason for Visit Reason for Visit: Diagnoses Gastrointestinal hemorrhage, unspecified (03/12/25) Subjective Subjective Scant bleeding. Feels well. Objective Data Objective Data Vital Signs: Vital Signs Temp Pulse Resp BP Pulse Ox O2 Del Method 36.3 C L 62 18 124/69 H 95 Room Air 03/13/25 08:55 03/13/25 08:55 03/13/25 08:55 03/13/25 08:55 03/13/25 08:55 03/13/25 08:55 Oxygen Delivery Method Room Air Weight: 82.7 kg Body Mass Index (BMI) 32.3 Intake & Output: Intake and Output for Last 24 Hours 03/11/25 03/12/25 03/13/25 23:59 23:59 23:59 Intake Total 2340 / 2540 1300 / 1300 Balance 2340 / 2540 1300 / 1300 Lab / Micro Data 03/13/25 04:58 03/13/25 04:58 Labs: Laboratory Results - last 24 hr 03/12/25 13:15: Hgb 10.4 L, Hct 31.0 L 03/12/25 17:18: Hgb 9.4 L, Hct 27.8 L 03/13/25 00:24: Hgb 8.2 L, Hct 24.4 L 03/13/25 04:58: WBC 5.8, RBC 2.76 L, Hgb 8.9 L, Hct 27.1 L, MCV 98.2, MCH 32.2 H, MCHC 32.8, RDW Std Deviation 46.2 H, RDW Coeff of Kisha 13.0, Plt Count 216, MPV 8.8, Immature Gran % (Auto) 0.500, Neut % (Auto) 61.0, Lymph % (Auto) 27.2, [place] % (Auto) 6.8, Eos % (Auto) 3.6, Baso % (Auto) 0.9, Absolute Neuts (auto) 3.6, Absolute Lymphs (auto) 1.59, Nucleated RBC % 0, PT 14.0, INR 1.1, APTT 24.9, Sodium 136, Potassium 3.9, Chloride 106, Carbon Dioxide 22.9, Anion Gap 7, BUN 10, Creatinine 0.58 L, Estim Creat Clear Calc 54.27, Est GFR (MDRD) Non-Af 90, BUN/Creatinine Ratio 17.6, Glucose 101 H, Calcium 8.2, Total Bilirubin 0.40, Direct Bilirubin 0.17, AST 18, ALT 12, Alkaline Phosphatase 60, Total Protein 5.5 L, Albumin 3.7, Globulin 1.8 L, Blood Type A POSITIVE, Antibody Screen NEGATIVE, Crossmatch See Detail Physical Exam Const alert and no apparent distress HEENT head/scalp atraumatic and moist oral mucous membranes Resp normal respiratory effort, no retractions, no use of accessory muscles and clear to auscultation bilaterally Cardio regular rate, regular rhythm, S1 normal heart sound and S2 normal heart sound GI normal to inspection, nondistended, normoactive bowel sounds, soft to palpation, non-tender and non-distended Extremity normal to inspection and full ROM Neuro Sensorium / Orientation: awake and alert Psych affect normal Assessment & Plan Assessment/Plan (1) GI bleed: PLAN: With a large quantity of blood being expelled with clots. She is not having any abdominal pain which makes me concerned that this may be more related with diverticulosis or internal hemorrhoids. She did undergo a CTA of her abdomen pelvis that did note radiopaque structures noted in the proximal sigmoid. I suspect that was probably just the large amount of blood and clot that she had yet to expel. At this point time seems that the bleeding may be slowly subsiding. Will continue to monitor her hemoglobin closely. GI has been contacted by the emergency room and will be formally consulted for hospitalization. Patient may need a another colonoscopy. Her previous colonoscopies have been for screening purposes only and that is why it was last done when she was 71 years old. For now, we will continue with IV pantoprazole but likely to discontinue in the next day or 2 as I do not feel this is an upper source of GI bleeding. Hemoglobin is currently stable at 12.6 but I do suspect it to drop though perhaps not to the level requiring transfusion. Will cycle her hemoglobin every 6 hours. Continue to hold off on Celebrex and aspirin (2) ABLA (acute blood loss anemia): PLAN: Hg 12.6 to 8.9, but has remained stable so far. No need for a transfusion. 2/2 GI bleed. Monitor. PLAN: Plan Chronic conditions Hypothyroidism: Continue levothyroxine Restless legs continue with pramipexole and gabapentin VTE prophylaxis: Moderate risk. SCDs. No chemical prophylaxis given the bleeding. CODE STATUS: Addressed with the patient. Patient wishes to be full code. She does have a living well and address his uncontrolled care if she wants to vegetative state. Charges/Coding Visit Charges Inpatient E&M: 98024 Subs Hosp L2
--- NOTE | 2025-03-13 12:16 | CASEMGMT ---
SEBASTIAN ESPARZA Assessment Face to Face with patient for initial transition planning/care coordination assessment. SEBASTIAN ESPARZA introduced self and role at [facility], pt voices understanding. Pt is A&Ox4 and is resting comfortably in bed and is calm. Pt's SO at bedside. Care providers, pharmacy, and demographics verified. Admitting dx: GI Bleed NI Strata: 1 PCP: Shira Hidalgo Specialists: Aravind (Ortho), Marco (PM), Guru (Eye) Preferred Pharmacy: [facility] Insurance: [employer] [facility] Prescription Benefit: Yes LNOK: Junior Garcia (SO) Living Arrangements: Pt lives with her SO in a single story home with one step to enter ADLs/IADLs: Pt states that she is indep and denies current concerns. However, noted that the pt's 6-Click score is 14 and that there is no PT ordered. Inquired with the pt if she is interested/ wanting PT/OT ordered. Pt declines the need. CM to follow. Transportation: Self, SO. DME: [facility], walk in shower, grab bars, shower chair, Cane, [facility] HHC/SNF: Denies hx or needs. Pt reports recent hx @ [facility] for OP PT Pt?s goal: Home Plan: Anticipate DC home with pt's SO once medically ready. Follow GI consult. At this time, the pt denies the need for any form or home care or OP therapy. Pt states that she feels safe returning home with her SO at the time of DC and denies further questions, concerns, or needs. Report given to MIMEOGRAPH OPERATOR CM. Vicenta Kim RN, CM
[2025-03-13 14:55] VITALS: BP 155/57; PULSE 72; RESP 18; TEMP 36.7; O2SAT 96
[2025-03-13] MEDS: Electrolyte Solution/Peg's 4000 ML PO (17:38)
--- NOTE | 2025-03-13 18:32 | EX.PCM.CON.G ---
HPI Consult Data Date of Consult: 03/13/25 HPI Narrative Reason for Consultation: GI bleed HPI Narrative: NUVIA BAUMAN, is a 84 F who presents with multiple episodes of dark and bright red blood per rectum. Patient states that she woke up this morning and noted that she states that she felt like she had passed gas and when she did this she noted that there was a large clot with dark red coming out of her rectum. This is the first time she has had any signs or symptoms of lower GI bleeding. Patient states that she is on celeoxib for her arthritis. Her hemoglobin on admission was 12.5 and it went down to 8.4 and the repeat was 8.9. Her BUN to creatinine ratio was normal at 10-0.5. [facility], [facility] Medical History Bernadette-prosthetic femoral shaft fracture Loss of hearing Wears glasses Wears dentures Post-menopausal Anxiety Thyroid disease Ambulates with cane Arthritis Restless legs Back pain Gastric reflux Asthma Shortness of breath on exertion Non-smoker Leg cramps History of pain when walking History of stress test History of echocardiogram History of Holter monitoring Angina pectoris Pain Home Medications ?Medication ?Instructions ?Recorded ?Last Taken ?Type albuterol sulfate 90 mcg/actuation 2 puff inhalation Q6H PRN PRN 06/19/13 03/08/25 History aerosol inhaler (Ventolin HFA) Dyspnea/Wheezing/Sob aspirin 81 mg tablet,delayed 81 mg PO DAILY 09/04/24 03/11/25 History release (Adult Aspirin Regimen) celecoxib 200 mg capsule 200 mg PO DAILY 09/04/24 03/11/25 History cholecalciferol (vitamin D3) 125 125 mcg PO DAILY 09/04/24 Unknown History mcg (5,000 unit) tablet (Vitamin D3) gabapentin 300 mg capsule 300 mg PO QHS 09/04/24 03/11/25 History levothyroxine 112 mcg tablet 112 mcg PO DAILY 09/04/24 03/11/25 History mecobalamin (vitamin B12) 1,000 1,000 mcg PO DAILY 09/04/24 03/11/25 History mcg chewable tablet omeprazole 40 mg capsule,delayed 40 mg PO DAILY PRN GERD 09/04/24 03/11/25 History release pramipexole 0.75 mg tablet 0.75 mg PO QHS RLS 09/04/24 03/11/25 History sennosides 8.6 mg-docusate sodium 1 tab-cap PO DAILY 09/04/24 03/11/25 History 50 mg tablet (Stool Softener-Stimulant Laxative) tramadol 50 mg tablet 25 - 50 mg PO Q12H PRN pain 09/04/24 Unknown History Held on 10/03/24. Instructions: Resume on 10/10/24. Do not take tramadol and oxycodone together. Ok to restart tramadol when not taking oxycodone acetaminophen 500 mg tablet 1,000 mg (2 x 500 mg) PO Q8 30 10/03/24 03/11/25 Rx days #180 tabs Allergy/AdvReac Type Severity Reaction Status Date / Time fexofenadine AdvReac Mild Nausea Verified 03/12/25 07:26 Sulfa (Sulfonamide AdvReac Mild Nausea Verified 03/12/25 07:26 Antibiotics) terfenadine AdvReac Mild Nausea Verified 03/12/25 07:26 Family History Mother Heart disease Surgical History Hx of colonoscopy Hx of eye surgery Hx of total shoulder replacement Hx of appendectomy History of revision of total hip arthroplasty Hx of total hip arthroplasty Hx of tubal ligation Hx of laparoscopy Hx of total hip arthroplasty Social History Smoking Status: Never smoker ROS Constitutional Constitutional: Denies fatigue, fever(s), poor appetite, weight gain or weight loss Gastrointestinal Gastrointestinal: Denies belching, bloating, change in bowel habits, change in stool character, chewing difficulty, coffee ground emesis, constipation, cramping, diarrhea, dyspepsia, dysphagia, early satiety, excessive flatus, fecal incontinence, heartburn, hematemesis, hematochezia, hemorrhoids, loose stools, melena, nausea, odynophagia, rectal bleeding, tenesmus, vomiting or weight changes Physical Exam Const alert, oriented x3, no apparent distress and healthy appearing General Appearance: cooperative GI normal to inspection, nondistended, normoactive bowel sounds, soft to palpation, non-tender and non-distended Percussion: normal to percussion Rectal Exam: deferred Lab / Micro Data 03/13/25 04:58 03/13/25 04:58 Labs: Laboratory Results - last 24 hr 03/13/25 00:24: Hgb 8.2 L, Hct 24.4 L 03/13/25 04:58: WBC 5.8, RBC 2.76 L, Hgb 8.9 L, Hct 27.1 L, MCV 98.2, MCH 32.2 H, MCHC 32.8, RDW Std Deviation 46.2 H, RDW Coeff of Kisha 13.0, Plt Count 216, MPV 8.8, Immature Gran % (Auto) 0.500, Neut % (Auto) 61.0, Lymph % (Auto) 27.2, [place] % (Auto) 6.8, Eos % (Auto) 3.6, Baso % (Auto) 0.9, Absolute Neuts (auto) 3.6, Absolute Lymphs (auto) 1.59, Nucleated RBC % 0, PT 14.0, INR 1.1, APTT 24.9, Sodium 136, Potassium 3.9, Chloride 106, Carbon Dioxide 22.9, Anion Gap 7, BUN 10, Creatinine 0.58 L, Estim Creat Clear Calc 54.27, Est GFR (MDRD) Non-Af 90, BUN/Creatinine Ratio 17.6, Glucose 101 H, Calcium 8.2, Total Bilirubin 0.40, Direct Bilirubin 0.17, AST 18, ALT 12, Alkaline Phosphatase 60, Total Protein 5.5 L, Albumin 3.7, Globulin 1.8 L, Blood Type A POSITIVE, Antibody Screen NEGATIVE, Crossmatch See Detail Assessment & Plan Assessment/Plan (1) ABLA (acute blood loss anemia): (2) GI bleed: PLAN: Differential diagnosis for GI bleed will be diverticular bleed, ischemic colitis, angiodysplasia and less likely neoplasia. I do not suspect this is secondary to nonsteroidals with an upper GI bleed with rapid transit due to normal BUN to creatinine ratio. She should undergo colonoscopy to evaluate her lower GI tract. She was explained alternatives, risk and benefits do not withstanding bleeding, infection, sepsis, perforation, need for surgery . She would have an ASA of 3. Charges/Coding Visit Charges Inpatient E&M: 24349 Init Hosp L3
[2025-03-13 20:59] VITALS: BMI 32.3
[2025-03-13 21:04] VITALS: BP 150/74; PULSE 72; RESP 18; TEMP 36.5; O2SAT 100
[2025-03-13] MEDS: Gabapentin 300 MG Capsule PO (21:06)
[2025-03-13] MEDS: Pramipexole Di-HCl 0.25 MG Tablet 0.75 MG PO (21:07)
[2025-03-13] MEDS: 0.9% Saline Lock 10 ML Syringe IV (21:09)
[2025-03-13 23:00] VITALS: RESP 18
[2025-03-13] MEDS: Albuterol 2.5 MG/3 ML VIAL.NEB. INHALATION (23:00)
[2025-03-14] VITALS (12 sets, daily range): BP systolic 101–142; BP diastolic 50–93; PULSE 61–77; RESP 16–18; TEMP 36–36.8; O2SAT 95–100
[2025-03-14 05:03] LABS: Absolute Lymphocyte Count 1.02 X10^3/uL (0.83-4.51); Absolute Neutrophil Count 4.2 X10^3/uL (2.0-7.7); Basophil# 0.05 X10^3/uL; Basophil% 0.9 % (0-1); Eosinophil# 0.08 X10^3/uL; Eosinophils% 1.4 % (0-5); Hematocrit 23.1 % (37-47); Hemoglobin 7.9 g/dL (12.0-15.0); Lymphocyte # 1.02 X10^3/ul (0.83-4.51); Mean Corp Hgb Conc 34.2 g/dL (32-36); Mean Corpuscular Hgb 32.8 pg (27.0-32.0); Mean Corpuscular Volume 95.9 fL (81-99); Mean Platelet Vol. 9.5 fl (6.2-12.0); Monocyte% 5.3 % (0-10); NRBC Flagged by Analyzer 0 % (0-5); Neutrophil # 4.18 X10^3/uL (2.7-7.7); Neutrophil % 73.9 % (47-70); Platelet Count 201 K/mm3 (150-450); RBC Distribution Width CV 12.7 % (11.6-14.6); RBC Distribution Width SD 44.7 fl (35.1-43.9); Red Blood Count 2.41 M/mm3 (4.2-5.4); White Blood Count 5.7 K/mm3 (4.4-11.0)
[2025-03-14] MEDS: Levothyroxine 112 MCG Tablet PO (05:22)
[2025-03-14 05:43] LABS: Anion Gap 11 (5-15); BUN 6 mg/dL (4-19); BUN/Creat Ratio 11.5 RATIO (10-20); Calcium,Total 8.8 mg/dL (7.6-11.0); Carbon Dioxide 22.7 mmol/L (21.0-32.0); Chloride 106 mmol/L (98-108); Creatinine, Serum 0.55 mg/dL (0.70-1.20); EST Glomerular Filtration Rate 91 (>60); Estimated Creatinine Clearance 54.27 ml/min (50-250); Glucose 100 mg/dL (70-99); Potassium 3.9 mmol/L (3.3-5.1); Sodium Level 139 mmol/L (133-145)
--- NOTE | 2025-03-14 08:22 | PN.HOSP_ITS ---
Reason for Visit Reason for Visit: Diagnoses Acute posthemorrhagic anemia (03/12/25) Gastrointestinal hemorrhage, unspecified (03/12/25) Subjective Subjective Feeling well. taken Colon prep. No further bleeding. Objective Data Objective Data Vital Signs: Vital Signs Temp Pulse Resp BP Pulse Ox O2 Del Method O2 Flow Rate 36.0 C L 73 18 142/60 H 99 Room Air 2 03/14/25 03:29 03/14/25 03:29 03/14/25 03:29 03/14/25 03:29 03/14/25 03:29 03/14/25 04:22 03/13/25 23:00 Oxygen Flow Rate (L/min) 2 Oxygen Delivery Method Room Air Weight: 82.7 kg Body Mass Index (BMI) 32.3 Intake & Output: Intake and Output for Last 24 Hours 03/12/25 03/13/25 03/14/25 23:59 23:59 23:59 Intake Total 2340 / 2540 2220 / 2220 Balance 2340 / 2540 2220 / 2220 Lab / Micro Data 03/14/25 03:57 03/14/25 03:57 Labs: Laboratory Results - last 24 hr 03/14/25 03:57: WBC 5.7, RBC 2.41 L, Hgb 7.9 L, Hct 23.1 L, MCV 95.9, MCH 32.8 H , MCHC 34.2, RDW Std Deviation 44.7 H, RDW Coeff of Kisha 12.7, Plt Count 201, MPV 9.5, Immature Gran % (Auto) 0.500, Neut % (Auto) 73.9 H, Lymph % (Auto) 18.0 L, [place] % (Auto) 5.3, Eos % (Auto) 1.4, Baso % (Auto) 0.9, Absolute Neuts (auto) 4.2, Absolute Lymphs (auto) 1.02, Nucleated RBC % 0, Sodium 139, Potassium 3.9, Chloride 106, Carbon Dioxide 22.7, Anion Gap 11, BUN 6, Creatinine 0.55 L, Estim Creat Clear Calc 54.27, Est GFR (MDRD) Non-Af 91, BUN/Creatinine Ratio 11.5, G lucose 100 H, Calcium 8.8 Physical Exam Const alert and no apparent distress HEENT head/scalp atraumatic and moist oral mucous membranes Resp normal respiratory effort, no retractions, no use of accessory muscles and clear to auscultation bilaterally Cardio regular rate, regular rhythm, S1 normal heart sound and S2 normal heart sound GI normal to inspection, nondistended, normoactive bowel sounds, soft to palpation, non-tender and non-distended Neuro Sensorium / Orientation: awake and alert Assessment & Plan Assessment/Plan (1) GI bleed: PLAN: With a large quantity of blood being expelled with clots. She is not having any abdominal pain which makes me concerned that this may be more related with diverticulosis or internal hemorrhoids. She did undergo a CTA of her abdomen pelvis that did note radiopaque structures noted in the proximal sigmoid. I suspect that was probably just the large amount of blood and clot that she had yet to expel. At this point time seems that the bleeding may be slowly subsiding. Will continue to monitor her hemoglobin closely. GI has been contacted by the emergency room and will be formally consulted for hospitalization. Patient may need a another colonoscopy. Her previous colonoscopies have been for screening purposes only and that is why it was last done when she was 71 years old. For now, we will continue with IV pantoprazole but likely to discontinue in the next day or 2 as I do not feel this is an upper source of GI bleeding. Hemoglobin is currently stable at 12.6 but I do suspect it to drop though perhaps not to the level requiring transfusion. Will cycle her hemoglobin every 6 hours. Continue to hold off on Celebrex and aspirin Colonoscopy showed diverticulosis in the recto-sigmoid colon and in the sigmoid colon. Treated with a heater probe. (2) ABLA (acute blood loss anemia): PLAN: Hg 12.6 to 7.9, but has remained stable so far. No need for a transfusion. 2/2 GI bleed. Monitor. PLAN: Plan Chronic conditions * Hypothyroidism: Continue levothyroxine * Restless legs continue with pramipexole and gabapentin VTE prophylaxis: Moderate risk. SCDs. No chemical prophylaxis given the bleeding. CODE STATUS: Addressed with the patient. Patient wishes to be full code. She does have a living well and address his uncontrolled care if she wants to vegetative state. Charges/Coding Visit Charges Inpatient E&M: 11472 Subs Hosp L2
[2025-03-14] MEDS: Pantoprazole Sodium 40 MG in 0.9% Normal Saline (100mL MB+) 100 ML 330 MG IV ×2 (08:28→20:40)
[2025-03-14] MEDS: 0.9% Saline Lock 10 ML Syringe IV (09:04)
[2025-03-14] MEDS: Lactated Ringers 1,000 ML 15 ML IV (13:26)
--- NOTE | 2025-03-14 13:28 | PCM.PRE.AN2 ---
ASA Classification* ASA Classification ASA Classification: 3 (Asthma, GERD, thyroid disease, RLS, ) Assessment & Plan Anesthesia* Anesthesia Assessment Anesthesia Assessment: Discussed sedation and/or anesthesia options, risks, benefits, and alternatives with patient/parents/legal guardian/POA. Questions invited. The patient/parents/legal guardian/POA seems to understand and agrees to proceed with anesthesia plan. Reviewed the physical assessment, medical history, allergy history and patient home medications list prior to surgery/procedure/anesthetic and documented any changes. Performed airway and anesthesia risk assessments. NUVIA BAUMAN, is a 84 F who presents with rectal bleeding. Began this morning where she had some blood as well as clots and presented to the emergency room. While in the emergency room she even had much larger volume bleeding and clots saturating her undergarments as well as spilling out under the bed sheets. She underwent a CT angiogram of her abdomen pelvis that did not show any obvious bleeding but did show a radiopaque lesion noted (this was before the copious amount of bleeding she had afterwards). Patient received pantoprazole IV in the emergency room Anesthesia Type Anesthesia Type: MAC Anesthesia Focused Assessment* Temperature: 97.3 F Pulse Rate: 66 Blood Pressure: 135/72 Respiratory Rate: 18 Pulse Ox: 100 Oxygen Delivery Method: Room Air Oxygen Flow Rate (L/min): 2 Airway Assessment Mouth opens: >3 cm Mallampati Score: III Neck Range of motion (ROM): Full ROM Labs Anesthesia Preop lab: CBC WBC 5.7 K/mm3 (4.4-11.0) 03/14/25 03:57 03/14/25 RBC 2.41 M/mm3 (4.2-5.4) L 03/14/25 03:57 03/14/25 Hgb 7.9 g/dL (12.0-15.0) L 03/14/25 03:57 03/14/25 Hct 23.1 % (37-47) L 03/14/25 03:57 03/14/25 Plt Count 201 K/mm3 (150-450) 03/14/25 03:57 03/14/25 CHEMISTRY Potassium 3.9 mmol/L (3.3-5.1) 03/14/25 03:57 03/14/25 Sodium 139 mmol/L (133-145) 03/14/25 03:57 03/14/25 Magnesium 2.3 mg/dL (1.6-2.6) 09/07/24 08:46 09/07/24 BUN 6 mg/dL (4-19) 03/14/25 03:57 03/14/25 Creatinine 0.55 mg/dL (0.70-1.20) L 03/14/25 03:57 03/14/25 Glucose 100 mg/dL (70-99) H 03/14/25 03:57 03/14/25 POC Glucose 119 mg/dL (74-106) H 10/02/24 10:27 10/02/24 TSH 2.270 uIU/mL (0.358-3.740) 09/07/24 08:46 09/07/24 COAG PT 14.0 SECONDS (11.7-14.9) 03/13/25 04:58 03/13/25 Pre-Assessment Diagnosis/Proposed Procedure Planned Operative Procedure(s): Colonoscopy Anesthesia History Anesthesia History - plant anatomist: Anesthesia History - plant anatomist Hx Hospitalization No 09/04/24 13:20 Any Problems With Anesthesia Yes 03/13/25 20:59 Cholinesterase deficiency No 03/13/25 20:59 You/Your Family Experience No 03/13/25 20:59 fever (hyperthermia) with Relationship Recent Exposure to Contagious No 03/13/25 20:59 Disease Does patient have nerve No 03/13/25 20:59 stimulator Patient instructed to have No 03/13/25 20:59 device shut off --Does patient have Pacemaker No 03/13/25 20:59 or ICD? When Was Last Pacemaker Check QUESTION #4 FULL TEXT: You/Your Family Experience fever (hyperthermia) with Anesthesia Last Oral Intake Last Oral intake: Last Oral Intake NPO since 00:00 03/13/25 20:59 Meds taken in AM with sips of water? Meds patient instructed to take am of surgery PONV PONV - plant anatomist: PONV - plant anatomist Female HX of Motion Sickness HX of N/V After Surgery Non-Smoker Duration of Surgery greater than 60 minutes Number of Risk Factors PONV Score Height & Weight Height & Weight: Anesthesia: Height & Weight Height 5 ft 3 in 03/14/25 12:00 Weight: 82.7 kg 03/14/25 12:00 Body Mass Index (BMI) 32.3 03/13/25 20:59 Respiratory Assessment Respiratory Assessment - plant anatomist: Respiratory Tract Infection Hx - plant anatomist Hx Respiratory Tract Infection No 03/13/25 20:59 STOP Sleep Apnea STOP Sleep Apnea - plant anatomist: STOP Sleep Apnea - plant anatomist Hx Hypertension No 03/12/25 11:48 Hx Sleep Apnea No 03/12/25 11:48 CPAP No 02/07/24 09:47 BIPAP No 02/07/24 09:47 Do you snore loudly (louder Yes 03/12/25 11:48 than talking or can be heard Do you often feel tired/ No 03/12/25 11:48 fatigued/ sleepy during daytime? Has anyone observed you stop No 03/12/25 11:48 breathing during sleep? STOP Results Negative 03/12/25 11:48 QUESTION #5 FULL TEXT : Do you snore loudly (louder than talking or can be heard through closed doors)? 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 Specify any problems Hx of Preganancy in last 3 No 03/12/25 11:48 Months Nurse Filling Out Transfusion [email or web address] 03/12/25 11:48 & Questions: Date: 03/12/25 03/12/25 11:48 Time: 11:49 03/12/25 11:48 Patient unable to answer at this time (ie. confused, unrespo /Reproduction History /Reproductive History - plant anatomist: /Reproductive Hx- plant anatomist Hx Now No 03/13/25 20:59 Gestational Age (in weeks): EDC: Hx Hx Para Hx Section SAB No 03/13/25 20:59 Active Medications Active Medications: Current Medications Generic Name Dose Route Start Last Admin Trade Name Freq PRN Reason Stop Dose Admin Acetaminophen 1,000 mg 03/12/25 14:00 03/14/25 05:22 Acetaminophen 500 Mg Tablet PO Not Given Q8 THOM Albuterol Sulfate 2.5 mg 03/12/25 11:45 03/13/25 23:00 Albuterol 2.5 Mg/3 Ml Vial.Neb. INHALATION 2.5 mg Q6H PRN PRN Administration Dyspnea/Wheezing/Sob Gabapentin 300 mg 03/12/25 22:00 03/13/25 21:06 Gabapentin 300 Mg Capsule PO 300 mg QHS THOM Administration Pantoprazole Sodium 40 mg/ 100 mls @ 300 mls/hr 03/12/25 22:00 03/14/25 10:14 Sodium Chloride IV Infused Q12 THOM Infusion Lactated Ringer's 1,000 mls @ 15 mls/hr 03/14/25 13:30 03/14/25 13:26 IV 15 mls/hr .Q48H THOM Administration Levothyroxine Sodium 112 mcg 03/13/25 06:00 03/14/25 05:22 Levothyroxine 112 Mcg Tablet PO 112 mcg DAILY@0600 THOM Administration Ondansetron HCl 4 mg 03/12/25 11:43 Ondansetron 4 Mg/2 Ml Vial IV Q8H PRN PRN NAUSEA/VOMITING Oxycodone HCl 2.5 - 5 mg 03/12/25 11:43 Oxycodone 5 Mg Tablet PO Q4H PRN PRN Pain Score 4-10 Pramipexole Dihydrochloride 0.75 mg 03/12/25 22:00 03/13/25 21:07 Pramipexole Di-Hcl 0.25 Mg Tablet PO 0.75 mg QHS TOHM Administration Sodium Chloride 10 - 40 ml 03/12/25 11:53 03/14/25 09:04 0.9% Saline Lock 10 Ml Syringe IV 10 ml UD PRN Administration SALINE FLUSH PFSH Medical History Bernadette-prosthetic femoral shaft fracture Loss of hearing Wears glasses Wears dentures Post-menopausal Anxiety Thyroid disease Ambulates with cane Arthritis Restless legs Back pain Gastric reflux Asthma Shortness of breath on exertion Non-smoker Leg cramps History of pain when walking History of stress test History of echocardiogram History of Holter monitoring Angina pectoris Pain Home Medications ?Medication ?Instructions ?Recorded ?Last Taken ?Type albuterol sulfate 90 mcg/actuation 2 puff inhalation Q6H PRN PRN 06/19/13 03/08/25 History aerosol inhaler (Ventolin HFA) Dyspnea/Wheezing/Sob aspirin 81 mg tablet,delayed 81 mg PO DAILY 09/04/24 03/11/25 History release (Adult Aspirin Regimen) celecoxib 200 mg capsule 200 mg PO DAILY 09/04/24 03/11/25 History cholecalciferol (vitamin D3) 125 125 mcg PO DAILY 09/04/24 Unknown History mcg (5,000 unit) tablet (Vitamin D3) gabapentin 300 mg capsule 300 mg PO QHS 09/04/24 03/11/25 History levothyroxine 112 mcg tablet 112 mcg PO DAILY 09/04/24 03/11/25 History mecobalamin (vitamin B12) 1,000 1,000 mcg PO DAILY 09/04/24 03/11/25 History mcg chewable tablet omeprazole 40 mg capsule,delayed 40 mg PO DAILY PRN GERD 09/04/24 03/11/25 History release pramipexole 0.75 mg tablet 0.75 mg PO QHS RLS 09/04/24 03/11/25 History sennosides 8.6 mg-docusate sodium 1 tab-cap PO DAILY 09/04/24 03/11/25 History 50 mg tablet (Stool Softener-Stimulant Laxative) tramadol 50 mg tablet 25 - 50 mg PO Q12H PRN pain 09/04/24 Unknown History Held on 10/03/24. Instructions: Resume on 10/10/24. Do not take tramadol and oxycodone together. Ok to restart tramadol when not taking oxycodone acetaminophen 500 mg tablet 1,000 mg (2 x 500 mg) PO Q8 30 10/03/24 03/11/25 Rx days #180 tabs Allergy/AdvReac Type Severity Reaction Status Date / Time fexofenadine AdvReac Mild Nausea Verified 03/12/25 07:26 Sulfa (Sulfonamide AdvReac Mild Nausea Verified 03/12/25 07:26 Antibiotics) terfenadine AdvReac Mild Nausea Verified 03/12/25 07:26 Family History Mother Heart disease Surgical History Hx of colonoscopy Hx of eye surgery Hx of total shoulder replacement Hx of appendectomy History of revision of total hip arthroplasty Hx of total hip arthroplasty Hx of tubal ligation Hx of laparoscopy Hx of total hip arthroplasty Social History Smoking Status: Never smoker Review of Systems (Anesthesia) ROS Narrative System reviewed and no additional complaints, except as documented.
--- NOTE | 2025-03-14 14:45 | COLBX_PTH ---
PATIENT: NUVIA BAUMAN LOC: PCU U#:[id number] AGE/SX: 84/F ROOM: [facility] RE03/12/[address]: Dr. Dexter Oconnor DO : 1940 BED: 1 DIS: 03/15/2025 SPEC #: [id number] RECD: 03/15/25 10:16 STATUS: NATA RAY #: [id number] HARSHAL: 03/14/25 14:[address]: Ra Isahsaan DEPT: SURGICAL PATHOLOGY RECD BY: Mark Yang ENTERED: 03/15/25 13:19 SP TYPE: COLON BX OTHR DR: DO Dr. Shira Penny DO Tissues: A - Cecum, NOS Procedures: Surgery Specimen Level IV HEADER OPERATION: Colonoscopy with polypectomy PRE-OP DIAGNOSIS: Acute blood loss anemia TISSUE SUBMITTED: A- Cecal polyp x2 MICROSCOPIC DIAGNOSIS A. Cecum, colon, polyp x2, biopsy: - Sessile serrated lesion, mucosal lymphoid aggregates (multiple fragments). MICROSCOPIC DESCRIPTION Slides are reviewed. GROSS DESCRIPTION A. Received in fixative is one container labeled with the patient's name and designated Cecal polyp x2. The specimen consists of multiple irregular fragments of light ruiz soft tissue that in aggregate measure 1.5 x 0.9 x 0.3 cm. The specimen is totally submitted in one cassette. WONG/ 03/15/2025 CPT:18564
--- NOTE | 2025-03-14 14:48 | PCM.POST.ANE ---
Anesthesia: Postop Eval I Current Vital Signs Temperature: 98.3 F Pulse Rate: 75 Blood Pressure: 105/89 Respiratory Rate: 18 Pulse Ox: 98 Assessment Airway patent: Yes Spontaneous unlabored respirations: Yes nausea: No Vomiting: No Anesthesia Complication: No Fluid Hydration Crystalloid volume administer (ml): 500 Total IV fluid infused: 500 Progress Note Anesthesia document: Postop Eval 1 completed: Yes
--- NOTE | 2025-03-14 14:56 | POSTOPAN2_ITS ---
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 Spontaneous unlabored Yes 03/14/25 14:48 PRESCHOOL LEAD TEACHER.CSIR respirations Mental status nausea No 03/14/25 14:48 PRESCHOOL LEAD TEACHER.CSIR Vomiting No 03/14/25 14:48 PRESCHOOL LEAD TEACHER.CSIR Anesthesia Postop Eval I: Fluid Summary Crystalloid volume administer 500 03/14/25 14:48 PRESCHOOL LEAD TEACHER.CSIR (ml) Colloids volume administered ( ml) Blood Product volume administered (ml) Total IV fluid infused 500 03/14/25 14:48 PRESCHOOL LEAD TEACHER.CSIR Anesthesia Postop Eval I: Summary Notes Anesthesia Complication No 03/14/25 14:48 PRESCHOOL LEAD TEACHER.CSIR Anesthesia Complication Comment: Post-operative progress note Anesthesia: Postop Eval II Evaluation Mental status: Awake Pain Level: 0 nausea: No Vomiting: No Complications Anesthesia Complication: No
--- NOTE | 2025-03-14 14:56 | PCM.POSTANE2 ---
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 AND EXHAUSTER.CSIR Spontaneous unlabored Yes 03/14/25 14:48 ENGINEER BOOSTER AND EXHAUSTER.CSIR respirations Mental status nausea No 03/14/25 14:48 ENGINEER BOOSTER AND EXHAUSTER.CSIR Vomiting No 03/14/25 14:48 ENGINEER BOOSTER AND EXHAUSTER.CSIR Anesthesia Postop Eval I: Fluid Summary Crystalloid volume administer 500 03/14/25 14:48 ENGINEER BOOSTER AND EXHAUSTER.CSIR (ml) Colloids volume administered ( ml) Blood Product volume administered (ml) Total IV fluid infused 500 03/14/25 14:48 ENGINEER BOOSTER AND EXHAUSTER.CSIR Anesthesia Postop Eval I: Summary Notes Anesthesia Complication No 03/14/25 14:48 ENGINEER BOOSTER AND EXHAUSTER.CSIR Anesthesia Complication Comment: Post-operative progress note Anesthesia: Postop Eval II Evaluation Mental status: Awake Pain Level: 0 nausea: No Vomiting: No Complications Anesthesia Complication: No
--- NOTE | 2025-03-14 15:01 | OP.COLON_ITS ---
Patient Name: Beatriz Salcedo Procedure Date: 03/14/2025 2:03 PM Date of : 1940 Age: 84 Procedure: Colonoscopy Indications: Hematochezia, Iron deficiency anemia Providers: Michael Moss DO Medicines: Monitored Anesthesia Care Patient Profile: This is an 84 year old female. Refer to note in patient chart for documentation of history and physical. Last Colonoscopy: more than 10 years ago. Complications: No immediate complications. Procedure: Pre-Anesthesia Assessment: - Prior to the procedure, a History and Physical was performed, and patient medications and allergies were reviewed. The patient is competent. The risks and benefits of the procedure and the sedation options and risks were discussed with the patient. All questions were answered and informed consent was obtained. Patient identification and proposed procedure were verified by the physician in the pre-procedure area. Mental Status Examination: alert and oriented. Airway Examination: normal oropharyngeal airway and neck mobility. Respiratory Examination: clear to auscultation. CV Examination: normal. Prophylactic Antibiotics: The patient does not require prophylactic antibiotics. Prior Anticoagulants: The patient has taken no anticoagulant or antiplatelet agents except for NSAID medication. ASA Grade Assessment: II - A patient with mild systemic disease. After reviewing the risks and benefits, the patient was deemed in satisfactory condition to undergo the procedure. The anesthesia plan was to use monitored anesthesia care (MAC). Immediately prior to administration of medications, the patient was re-assessed for adequacy to receive sedatives. The heart rate, respiratory rate, oxygen saturations, blood pressure, adequacy of pulmonary ventilation, and response to care were monitored throughout the procedure. The physical status of the patient was re-assessed after the procedure. After I obtained informed consent, the scope was passed under direct vision. Throughout the procedure, the patient's blood pressure, pulse, and oxygen saturations were monitored continuously. The Colonoscope was introduced through the anus and advanced to the cecum, identified by appendiceal orifice and ileocecal valve. The colonoscopy was performed without difficulty. The patient tolerated the procedure well. The quality of the bowel preparation was adequate. The terminal ileum, ileocecal valve, appendiceal orifice, and rectum were photographed. Scope In: 2:17:45 PM Scope Withdrawal Time 0 hours 12 minutes 27 seconds Scope Out: 2:39:52 PM Total Procedure Duration Time 0 hours 22 minutes 7 seconds Findings: The perianal and digital rectal examinations were normal. Multiple small and large-mouthed diverticula were found in the recto-sigmoid colon and sigmoid colon. Coagulation for hemostasis using heater probe was successful. Estimated blood loss was minimal. Red blood was found in the sigmoid colon. Two sessile polyps were found in the cecum. The polyps were 1 to 2 mm in size. These polyps were removed with a hot snare. Resection and retrieval were complete. Verification of patient identification for the specimen was done. Estimated blood loss was minimal. Impression: - Diverticulosis in the recto-sigmoid colon and in the sigmoid colon. Treated with a heater probe. - Blood in the sigmoid colon. - Two 1 to 2 mm polyps in the cecum, removed with a hot snare. Resected and retrieved. Recommendation: - [facility] care. - Resume regular diet [Duration]. - No recommendation at this time regarding repeat colonoscopy due to age. - Continue present medications. Procedure Code(s): --- Professional --- 75346, 59, Colonoscopy, flexible; with control of bleeding, any method 19109, Colonoscopy, flexible; with removal of tumor(s), polyp(s), or other lesion(s) by snare technique CPT copyright 2021 [employer]. All rights reserved. The codes documented in this report are preliminary and upon remote inpatient coder review may be revised to meet current compliance requirements. Michael Moss DO 03/14/2025 3:01:19 PM This report has been signed electronically. Number of Addenda: 0 Note Initiated On: 03/14/2025 2:03 PM
--- NOTE | 2025-03-14 15:02 | OP.CCLET_ITS ---
03/14/2025 Shira Hidalgo [address] [place] [address] Re : Colonoscopy procedure for Beatriz Salcedo Dear Dr. Hidalgo This procedure was performed on Friday, March 14, 2025. My impressions and recommendations are as follows: Impressions : - Diverticulosis in the recto-sigmoid colon and in the sigmoid colon. Treated with a heater probe. - Blood in the sigmoid colon. - Two 1 to 2 mm polyps in the cecum, removed with a hot snare. Resected and retrieved. Recommendations : - Return patient [facility] care. - Resume regular diet [Duration]. - No recommendation at this time regarding repeat colonoscopy due to age. - Continue present medications. My findings are described in the full procedure note, which is enclosed. If I can be of further assistance, please feel free to contact me at . Sincerely, Michael Moss, 03/14/2025 3:01:19 PM This report has been signed electronically.
[2025-03-14] MEDS: Gabapentin 300 MG Capsule PO (20:36)
[2025-03-14] MEDS: Pramipexole Di-HCl 0.25 MG Tablet 0.75 MG PO (20:37)
[2025-03-14] MEDS: Acetaminophen 500 MG Tablet 1000 MG PO (20:37)
[2025-03-15 03:00] VITALS: BP 105/50; PULSE 61; RESP 18; TEMP 36.1; O2SAT 97
[2025-03-15] MEDS: Acetaminophen 500 MG Tablet 1000 MG PO ×2 (06:04→13:26)
[2025-03-15] MEDS: Levothyroxine 112 MCG Tablet PO (06:04)
[2025-03-15] MEDS: 0.9% Saline Lock 10 ML Syringe IV (06:05)
[2025-03-15 06:37] LABS: Absolute Lymphocyte Count 1.34 X10^3/uL (0.83-4.51); Absolute Neutrophil Count 3.4 X10^3/uL (2.0-7.7); Basophil# 0.05 X10^3/uL; Basophil% 0.9 % (0-1); Eosinophil# 0.18 X10^3/uL; Eosinophils% 3.4 % (0-5); Hematocrit 22.6 % (37-47); Hemoglobin 7.7 g/dL (12.0-15.0); Lymphocyte # 1.34 X10^3/ul (0.83-4.51); Mean Corp Hgb Conc 34.1 g/dL (32-36); Mean Corpuscular Hgb 32.9 pg (27.0-32.0); Mean Corpuscular Volume 96.6 fL (81-99); Mean Platelet Vol. 8.8 fl (6.2-12.0); Monocyte# 0.38 X10^3/uL; Monocyte% 7.1 % (0-10); NRBC Flagged by Analyzer 0 % (0-5); Neutrophil # 3.39 X10^3/uL (2.7-7.7); Platelet Count 196 K/mm3 (150-450); RBC Distribution Width CV 13.1 % (11.6-14.6); Red Blood Count 2.34 M/mm3 (4.2-5.4); White Blood Count 5.4 K/mm3 (4.4-11.0)
[2025-03-15 07:31] LABS: Anion Gap 9 (5-15); BUN 9 mg/dL (4-19); BUN/Creat Ratio 12.8 RATIO (10-20); Calcium,Total 8.6 mg/dL (7.6-11.0); Carbon Dioxide 22.1 mmol/L (21.0-32.0); Chloride 105 mmol/L (98-108); Creatinine, Serum 0.74 mg/dL (0.70-1.20); EST Glomerular Filtration Rate 81 (>60); Estimated Creatinine Clearance 54.27 ml/min (50-250); Glucose 97 mg/dL (70-99); Potassium 3.8 mmol/L (3.3-5.1); Sodium Level 137 mmol/L (133-145)
--- NOTE | 2025-03-15 07:51 | PN.HOSP_ITS ---
Reason for Visit Reason for Visit: Diagnoses Acute posthemorrhagic anemia (03/12/25) Gastrointestinal hemorrhage, unspecified (03/12/25) Subjective Subjective No further bleeding. Objective Data Objective Data Vital Signs: Vital Signs Temp Pulse Resp BP Pulse Ox O2 Del Method O2 Flow Rate 36.1 C L 61 18 105/50 L 97 Room Air 2 03/15/25 03:00 03/15/25 03:00 03/15/25 03:00 03/15/25 03:00 03/15/25 03:00 03/15/25 05:00 03/14/25 13:31 Oxygen Flow Rate (L/min) 2 Oxygen Delivery Method Room Air Weight: 82.7 kg Body Mass Index (BMI) 32.3 Intake & Output: Intake and Output for Last 24 Hours 03/13/25 03/14/25 03/15/25 23:59 23:59 23:59 Intake Total 2220 / 2220 440 / 440 263.25 / 263.25 Balance 2220 / 2220 440 / 440 263.25 / 263.25 Lab / Micro Data 03/15/25 06:25 03/15/25 06:25 Labs: Laboratory Results - last 24 hr 03/15/25 06:25: WBC 5.4, RBC 2.34 L, Hgb 7.7 L, Hct 22.6 L, MCV 96.6, MCH 32.9 H , MCHC 34.1, RDW Std Deviation 46.0 H, RDW Coeff of Kisha 13.1, Plt Count 196, MPV 8.8, Immature Gran % (Auto) 0.600, Neut % (Auto) 63.0, Lymph % (Auto) 25.0, [place] % (Auto) 7.1, Eos % (Auto) 3.4, Baso % (Auto) 0.9, Absolute Neuts (auto) 3.4, Absolute Lymphs (auto) 1.34, Nucleated RBC % 0, Sodium 137, Potassium 3.8, Chloride 105, Carbon Dioxide 22.1, Anion Gap 9, BUN 9, Creatinine 0.74, Estim Creat Clear Calc 54.27, Est GFR (MDRD) Non-Af 81, BUN/Creatinine Ratio 12.8, Glucose 97, Calcium 8.6 Physical Exam Const alert and no apparent distress HEENT head/scalp atraumatic and moist oral mucous membranes Resp normal respiratory effort and no retractions Assessment & Plan Assessment/Plan (1) GI bleed: PLAN: With a large quantity of blood being expelled with clots. She is not having any abdominal pain which makes me concerned that this may be more related with diverticulosis or internal hemorrhoids. She did undergo a CTA of her abdomen pelvis that did note radiopaque structures noted in the proximal sigmoid. I suspect that was probably just the large amount of blood and clot that she had yet to expel. At this point time seems that the bleeding may be slowly subsiding. Will continue to monitor her hemoglobin closely. GI has been contacted by the emergency room and will be formally consulted for hospitalization. Patient may need a another colonoscopy. Her previous colonoscopies have been for screening purposes only and that is why it was last done when she was 71 years old. For now, we will continue with IV pantoprazole but likely to discontinue in the next day or 2 as I do not feel this is an upper source of GI bleeding. Hemoglobin is currently stable at 12.6 but I do suspect it to drop though perhaps not to the level requiring transfusion. Will cycle her hemoglobin every 6 hours. Continue to hold off on Celebrex and aspirin Colonoscopy showed diverticulosis in the recto-sigmoid colon and in the sigmoid colon. Treated with a heater probe. Resume ASA and Celebrex in 96 hours. (2) ABLA (acute blood loss anemia): PLAN: Hg 12.6 to 7.7, but has remained stable so far. No need for a transfusion. 2/2 GI bleed. Monitor. DC with Ferrous sulfate for 2 weeks. PLAN: Plan Chronic conditions * Hypothyroidism: Continue levothyroxine * Restless legs continue with pramipexole and gabapentin VTE prophylaxis: Moderate risk. SCDs. No chemical prophylaxis given the bleeding. CODE STATUS: Addressed with the patient. Patient wishes to be full code. She does have a living well and address his uncontrolled care if she wants to vegetative state.
[2025-03-15 08:22] VITALS: BP 132/62; PULSE 57; RESP 17; TEMP 37.2; O2SAT 95
[2025-03-15] MEDS: Pantoprazole Sodium 40 MG in 0.9% Normal Saline (100mL MB+) 100 ML 300 MG IV (10:28)
--- NOTE | 2025-03-15 13:09 | DS.PCM_ITS ---
Providers Date of Admission: 03/12/25 Primary Care Physician: Dr. Shira Hidalgo, DO Consultations 03/12/25 11:43 Consult: Gastroenterology Routine Consulting Provider: [facility] Reason for Consult: GI bleed EMERGENT Consult: No MD Notified: Yes Date Notified: 03/12/25 Time Notified: 10:58 Method of Notification: ED Physician Initiated Reason For Visit: GI BLEED Diagnosis Discharge Diagnosis (1) GI bleed: Status: Acute Code(s): K92.2 - Gastrointestinal hemorrhage, unspecified Plan: With a large quantity of blood being expelled with clots. She is not having any abdominal pain which makes me concerned that this may be more related with diverticulosis or internal hemorrhoids. She did undergo a CTA of her abdomen pelvis that did note radiopaque structures noted in the proximal sigmoid. I suspect that was probably just the large amount of blood and clot that she had yet to expel. At this point time seems that the bleeding may be slowly subsiding. Will continue to monitor her hemoglobin closely. GI has been contacted by the emergency room and will be formally consulted for hospitalization. Patient may need a another colonoscopy. Her previous colonoscopies have been for screening purposes only and that is why it was last done when she was 71 years old. For now, we will continue with IV pantoprazole but likely to discontinue in the next day or 2 as I do not feel this is an upper source of GI bleeding. Hemoglobin is currently stable at 12.6 but I do suspect it to drop though perhaps not to the level requiring transfusion. Will cycle her hemoglobin every 6 hours. Continue to hold off on Celebrex and aspirin Colonoscopy showed diverticulosis in the recto-sigmoid colon and in the sigmoid colon. Treated with a heater probe. Resume ASA and Celebrex in 96 hours. (2) ABLA (acute blood loss anemia): Status: Acute Code(s): D62 - Acute posthemorrhagic anemia Plan: Hg 12.6 to 7.7, but has remained stable so far. No need for a transfusion. 2/2 GI bleed. Monitor. DC with Ferrous sulfate for 2 weeks. Plan Chronic conditions * Hypothyroidism: Continue levothyroxine * Restless legs continue with pramipexole and gabapentin VTE prophylaxis: Moderate risk. SCDs. No chemical prophylaxis given the bleeding. CODE STATUS: Addressed with the patient. Patient wishes to be full code. She does have a living well and address his uncontrolled care if she wants to vegetative state. Medications at Discharge Home Medications albuterol sulfate 90 mcg/actuation aerosol inhaler (Ventolin HFA) 2 puff inhalation Q6H PRN PRN Dyspnea/Wheezing/Sob 06/19/13 aspirin 81 mg tablet,delayed release (Adult Aspirin Regimen) 81 mg PO DAILY 09/04/24 Held on 03/15/25. Instructions: Resume on 03/19/25. celecoxib 200 mg capsule 200 mg PO DAILY 09/04/24 Held on 03/15/25. Instructions: Resume on 03/19/25. cholecalciferol (vitamin D3) 125 mcg (5,000 unit) tablet (Vitamin D3) 125 mcg PO DAILY 09/04/24 gabapentin 300 mg capsule 300 mg PO QHS 09/04/24 levothyroxine 112 mcg tablet 112 mcg PO DAILY 09/04/24 mecobalamin (vitamin B12) 1,000 mcg chewable tablet 1,000 mcg PO DAILY 09/04/24 omeprazole 40 mg capsule,delayed release 40 mg PO DAILY PRN GERD 09/04/24 pramipexole 0.75 mg tablet 0.75 mg PO QHS RLS 09/04/24 sennosides 8.6 mg-docusate sodium 50 mg tablet (Stool Softener-Stimulant Laxative) 1 tab-cap PO DAILY 09/04/24 acetaminophen 500 mg tablet 1,000 mg (2 x 500 mg) PO Q8 30 days #180 tabs 10/03/24 ferrous sulfate 325 mg (65 mg iron) tablet 325 mg PO DAILY #14 tabs 03/15/25 Hospital Course Procedures Colonoscopy Summary of Care Provided Hospital Course: Patient presents with acute onset of GI bleed. Patient was passing copious amounts of blood as well as clots. She did undergo a CTA of the abdomen pelvis to look for any visible bleeding vessels. Patient had colonoscopy performed that showed diverticulosis and that area was cauterized. Patient had no further bleeding. Patient has remained stable. Patient was taking aspirin and Celebrex. She may resume those but after 96 hours. Patient advised that this could recur again and if so to return to the hospital. Weight / BMI Weight Weight: 82.7 kg Body Mass Index (BMI) 32.3 ABG / Lab / Microbiology Data 03/15/25 06:25 03/15/25 06:25 Laboratory: Laboratory Results - last 24 hr 03/15/25 06:25: WBC 5.4, RBC 2.34 L, Hgb 7.7 L, Hct 22.6 L, MCV 96.6, MCH 32.9 H , MCHC 34.1, RDW Std Deviation 46.0 H, RDW Coeff of Kisha 13.1, Plt Count 196, MPV 8.8, Immature Gran % (Auto) 0.600, Neut % (Auto) 63.0, Lymph % (Auto) 25.0, [place] % (Auto) 7.1, Eos % (Auto) 3.4, Baso % (Auto) 0.9, Absolute Neuts (auto) 3.4, Absolute Lymphs (auto) 1.34, Nucleated RBC % 0, Sodium 137, Potassium 3.8, Chloride 105, Carbon Dioxide 22.1, Anion Gap 9, BUN 9, Creatinine 0.74, Estim Creat Clear Calc 54.27, Est GFR (MDRD) Non-Af 81, BUN/Creatinine Ratio 12.8, Glucose 97, Calcium 8.6 D/C Instructions Discharge Diet: No restrictions DC O2, CPAP, BIPAP Needs Home O2 Discharge instructions: No Meaningful Use Info Meaningful Use Meaningful Use Diagnoses (Choose all that apply): None applicable Ischemic Stroke Statin Dosing Therapy Reference: STATIN DOSE THERAPY REFERENCE: * Patients > 75 years receive moderate or high dose statin therapy. * Patients 75 years or YOUNGER should receive HIGH intensity statin dose unless contraindicated. You will be required to document reason for non-treatment if statin daily dose does not meet guidelines. HIGH DOSE STATIN THERAPY DAILY Atorvastatin > than or = to 40 mg Rosuvastatin > than or = to 20 mg Amlodipine + Atorvastatin > than or = to 2.5/40 mg Ezetimibe + Simvastatin 10/80 mg Simvastatin 80mg Discharge Plan Admission Admit Date/Time: 03/12/25 10:56 Primary Reason for Your Visit: Gastrointestinal hemorrhage Attending Provider: Dexter Oconnor Primary Care Provider: Shira Hidalgo Instructions Additional Instructions / Restrictions: You had bleeding from your colon due to your diverticulosis. The aspirin and Celebrex did not cause a bleeding but did not help matters. Would like for you to hold off on those for the next 4 days. The bleeding may never occur again but if it does please contact your physician or return to the emergency room. Discharge Orders/Prescriptions Prescriptions: New ferrous sulfate 325 mg (65 mg iron) tablet 325 mg PO DAILY Qty: 14 0RF Continued albuterol sulfate [Ventolin HFA] 1 INHALER inhaler 2 puff inhalation Q6H PRN PRN (Reason: Dyspnea/Wheezing/Sob) Patient Comments: WHEEZING/SHORTNESS OF BREATH gabapentin 300 mg capsule 300 mg PO QHS levothyroxine 112 mcg tablet 112 mcg PO DAILY omeprazole 40 mg capsule,delayed release(DR/EC) 40 mg PO DAILY PRN (Reason: GERD) Patient Comments: pt states has been taking qod pramipexole 0.75 mg tablet 0.75 mg PO QHS cholecalciferol (vitamin D3) [Vitamin D3] 125 mcg (5,000 unit) tablet 125 mcg PO DAILY Patient Comments: pt states does not take regularly mecobalamin (vitamin B12) 1,000 mcg tablet,chewable 1,000 mcg PO DAILY sennosides-docusate sodium [Stool Softener-Stimulant Laxat] 1 TABLET tablet 1 tab-cap PO DAILY Patient Comments: STOOL SOFTENER acetaminophen 500 mg Tablet 1,000 mg PO Q8 30 Days Qty: 180 0RF Held aspirin [Adult Aspirin Regimen] 81 mg tablet,delayed release (DR/EC) 81 mg PO DAILY Hold Instructions: Resume on 03/19/25. celecoxib 200 mg capsule 200 mg PO DAILY Hold Instructions: Resume on 03/19/25. Discontinued tramadol 50 mg tablet 25 - 50 mg PO Q12H PRN (Reason: pain) Referrals / Follow Up: Shira Hidalgo DO [Primary Care Provider] - Within 2 Weeks Disposition Disposition (needs filled in before D/C Order can be placed): Home, Self Care Charges/Coding Visit Charges Inpatient E&M: 37396 Disch Hosp >30min
--- NOTE | 2025-03-15 14:15 | CASEMGMT ---
Patient has order for discharge. RN CM in to discuss needs at discharge. Patient denies needs or help at discharge. Patient had no further questions or concern.
--- NOTE | 2025-03-15 17:47 | PN_ITS ---
Progress Note She is status post lower GI bleed. She has had no bleeding overnight. Her hemoglobin seems stable. Physical Exam Const alert, oriented x3, no apparent distress and healthy appearing General Appearance: cooperative GI normal to inspection, nondistended, normoactive bowel sounds, soft to palpation, non-tender and non-distended Percussion: normal to percussion Rectal Exam: deferred Assessment & Plan Assessment/Plan (1) GI bleed: PLAN: 84-year-old on aspirin and Celebrex with history of iron-deficiency anemia comes in with lower GI bleed She is not having any abdominal pain which makes me concerned that this may be more related with diverticulosis or internal hemorrhoids. She did undergo a CTA of her abdomen pelvis that did note radiopaque structures noted in the proximal sigmoid. 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 Hemoglobin is stable and patient can be DC'd from GI standpoint. (2) ABLA (acute blood loss anemia): PLAN: Hg 12.6 to 7.7, but has remained stable so far. No need for a transfusion. 2/2 GI bleed. Monitor. DC with Ferrous sulfate for 2 weeks. PLAN: Plan Chronic conditions * Hypothyroidism: Continue levothyroxine * Restless legs continue with pramipexole and gabapentin VTE prophylaxis: Moderate risk. SCDs. No chemical prophylaxis given the bleeding. CODE STATUS: Addressed with the patient. Patient wishes to be full code. She does have a living well and address his uncontrolled care if she wants to vegetative state. Visit Charges Inpatient E&M: 35626 Subs Hosp L3
== END 2025-03-15 14:49 | disposition home or self-care (01) | DRG 378 ==
LOC: ED 10:35 → PCU 11:09
PROVIDERS: Anesthesiology; Internal Medicine Gastroenterology; Emergency Provider Emergency Medicine; PCP Internal Medicine
PROC: 0DJD8ZZ Inspection of Lower Intestinal Tract, Via Natural or Artificial Opening Endoscopic (ICD-10-PCS; CPT 45378; principal; 2025-03-14 14:40)
DX: K57.31 Diverticulosis of large intestine without perforation or abscess with bleeding (principal); D62 Acute posthemorrhagic anemia; D68.32 Hemorrhagic disorder due to extrinsic circulating anticoagulants; D50.9 Iron deficiency anemia, unspecified; E03.9 Hypothyroidism, unspecified; G25.81 Restless legs syndrome; K63.5 Polyp of colon; Z79.1 Long term (current) use of non-steroidal anti-inflammatories (NSAID); Z79.82 Long term (current) use of aspirin; Z79.890 Hormone replacement therapy; T45.515A Adverse effect of anticoagulants, initial encounter
CPT/HCPCS: 36415; 74174; 80048; 80053; 80076; 83690; 85014; 85018; 85025; 85610; 85730; 86850; 86900; 86901; 88305; 93005; 94640; 99284; Q9967; A4216; J2405